=== PATIENT | male | born 1960 | race Caucasian/White ===

== ENCOUNTER 2021-07-26 09:19 | Outpatient (CLI) | payer OTHER, SELFPAY ==
--- NOTE | ~2021-07-26 | CT_ITS ---
EXAMINATION: CT lung screening DATE: 07/26/2021 09:34 INDICATION: Z87.891 - Personal history of nicotine dependence TECHNIQUE: Computed tomography (CT) of the chest was performed without intravenous contrast. Addition al 3D reconstructions utilizing coronal maximum intensity projection (MIP) were performed. Automated exposure control and iterative reconstruction technique were employed. The dose-length product was 12 5.51 mGy-cm. COMPARISON: None FINDINGS: Mild emphysema. 5 mm subpleural nodule at the posterior sulcus of the left lower lobe. Multiple addit ional <4 mm nodules scattered throughout both lungs. Couple smelling small calcified nodules in the r ight upper lobe consistent with old granulomatous disease. No pneumonia, pulmonary edema or pleural e ffusion. Heart size is normal. Atherosclerotic coronary artery calcific location. No pericardial effu kesha. Thoracic aorta is normal in caliber. Mildly prominent likely reactive precarinal lymph nodes me asuring up to 10 mm in maximal short axis diameter. No other pathologically enlarged thoracic lymphad enopathy. Cholecystectomy clips at the gallbladder fossa. 2.2 cm low-attenuation left adrenal adenoma . Mild to moderate thoracic spondylosis. Minimal chronic-appearing anterior wedging of a few mid to l ower thoracic vertebral bodies. There are bridging osteophytes at multiple levels in the spine, consi stent with diffuse idiopathic skeletal hyperostosis (DISH). IMPRESSION: 1. Lung-RADS category 2: Benign appearance or behavior. Continue annual screening with noncontrast lo w-dose chest CT in 12 months. 2. Mild emphysema. Reviewed, dictated and finalized at location A. ON DECORATING MACHINE OPERATOR IMPRESSION: 1. Lung-RADS category 2: Benign appearance or behavior. Continue annual screeni ng with noncontrast low-dose chest CT in 12 months. 2. Mild emphysema.
== END 2021-07-26 09:20 | disposition home or self-care (01) ==
LOC: ANHIMG 09:23
PROVIDERS: PCP Internal Medicine; Visit Provider Internal Medicine
DX: Z87.891 Personal history of nicotine dependence (principal); J43.9 Emphysema, unspecified
CPT/HCPCS: 71271

== ENCOUNTER 2022-05-28 14:25 | Emergency (ER) | payer OTHER, SELFPAY ==
[2022-05-28] VITALS (9 sets, daily range): BP systolic 135–144; BP diastolic 73–88; PULSE 75–79; RESP 13–18; TEMP 36.8–36.9; O2SAT 96–100
--- NOTE | ~2022-05-28 | CT_ITS ---
EXAMINATION: CT abdomen pelvis wo con DATE: 05/28/2022 15:53 INDICATION: R flank pain TECHNIQUE: Computed tomography (CT) of the abdomen and pelvis was performed without intravenous contr ast. Automated exposure control and iterative reconstruction technique were employed. The dose-length product was 697.25 mGy-cm. COMPARISON: 09/29/2016. FINDINGS: Lower thorax: Unremarkable Liver: Normal. Biliary/Gallbladder: Gallbladder is absent. No bile duct dilation. Pancreas: No mass or duct dilation. Spleen: Normal. Adrenals:Bilateral adrenal thickening, likely hyperplasia. Kidneys: No mass, stone, or hydronephrosis. GI tract: Unchanged thickening of the distal esophagus. No small or large bowel dilation. Normal appe ndix. Diverticulosis without diverticulitis. Mesentery/Peritoneum: No ascites, mass, or free air. Retroperitoneum: No mass. Atherosclerotic abdominal aortic and/or arterial calcifications. Pelvis: Pelvic organs are within normal limits. Soft Tissues: Soft tissues and body wall unremarkable. Bones: No acute osseous finding. IMPRESSION: No acute abdominopelvic process detected. Reviewed, dictated and finalized at location K. TING MACHINIST
[2022-05-28 14:47] LABS: Basophils Percent Auto 0.3 % (0.2-1.2); Eosinophils Absolute Auto 0.2 K/mm3 (0-0.3); Eosinophils Percent Auto 1.9 % (0-4.4); Hematocrit 36.6 % (42.0-52.0); Hemoglobin 12.1 g/dL (14.0-18.0); Immature Granulocyte Absolute 0.05 K/mm3 (0.00-0.031); Immature Granulocyte Percent A 0.4 % (0-0.5); Lymphocytes Absolute Auto 2.34 K/mm3 (0.9-3.2); Lymphocytes Percent Auto 18.5 % (18.3-44.2); Mean Corpuscular HGB Conc 33.1 g/dl (32-36); Mean Corpuscular Volume 90.8 fl (80-100); Mean Platelet Volume 9.9 fl (7.4-10.4); Monocytes Absolute Auto 1.1 K/mm3 (0.1-0.6); Monocytes Percent Auto 8.5 % (2.6-8.5); Neutrophils Absolute Auto 8.9 K/mm3 (1.3-6.7); Neutrophils Percent Auto 70.4 % (45.5-73.1); Platelet Count Result 229 k/mm3 (150-375); Red Blood Count 4.03 M/mm3 (4.6-6.20); Red Cell Distribution Width 13.6 % (11.5-14.5); White Blood Count 12.6 K/mm3 (4.5-10.0)
[2022-05-28 14:56] LABS: Alanine Aminotransferase 23 U/L (6-50); Albumin Level 4.5 g/dL (3.5-5.1); Alkaline Phosphatase 90 U/L (38-126); Anion Gap 8 mmol/L (8-16); Aspartate Amino Transferase 24 U/L (17-59); Bilirubin,Total 0.5 mg/dL (0.2-1.3); Blood Urea Nitrogen 13 mg/dL (9-20); Calcium 9.2 mg/dL (8.4-10.2); Carbon Dioxide 26 mmol/L (22-30); Chloride 104 mmol/L (98-107); Estimated CRCL calculation 67 ml/min; Estimated Glomerular Filt Rate > 60; Glucose 196 mg/dL (65-110); Lipase 181 U/L (23-300); Potassium 4.4 mmol/L (3.4-5.0); Sodium 138 mmol/L (137-145)
--- NOTE | 2022-05-28 15:39 | ED.ABDPAIN ---
HPI - Abdominal Pain General Chief Complaint: Abdominal Pain Stated Complaint: abdominal pain radiate to back Diverticulitis Time Seen by Provider: 05/28/22 15:23 History of Present Illness HPI narrative: Patient is a 62-year-old male with a history of diabetes, hypertension, hyperlipidemia presenting with right flank pain. Patient states that for the last 3 days he has had intermittent colicky right flank pain associated with nausea but no vomiting. No diarrhea or constipation. States he has had kidney stones in the past as well as diverticulitis and he is unsure if it feels like either. Denies dysuria or hematuria. No fevers or chills, headache, chest pain, shortness of breath, cough, abdominal pain. Related Data Home Medications Medication Instructions Recorded Confirmed blood sugar diagnostic, drum ##1 10/20/19 01/05/22 Allergies Allergy/AdvReac Type Severity Reaction Status Date / Time codeine Allergy Mild stomach Verified 05/28/22 14:26 pain Penicillins Allergy Mild pt does Verified 05/28/22 14:26 not know Review of Systems Review of Systems: All systems reviewed & are unremarkable except as noted in HPI and below PMFSH Family History Family History Father Family history of diabetes mellitus in first degree relative Mother Family history of lung cancer Family history of gallbladder disease Family history of malignant neoplasm Sibling Family history of gallbladder disease Social History Social History Smoking packs per day: 1 Smoking cigarettes per day: 20.0 Years smoked: 45 Smoking pack-years: 45.00 Smoking status: Current some day smoker Alcohol intake: current Exam Narrative: GENERAL: Well-appearing, well-nourished, and in no acute distress. HEAD: Normocephalic, atraumatic. EYES: PERRLA and EOMI. ENT: Nares clear, no rhinorrhea or epistaxis. Mucous membranes moist. NECK: Supple. BACK: No midline tenderness CHEST: Clear to auscultation. No respiratory distress. HEART: Regular rate and rhythm. No murmur heard. Normal peripheral pulses. ABDOMEN: Soft, nontender, nondistended, normal active bowel sounds. Mild right CVA tenderness EXTREMITIES: Normal range of motion. No edema. SKIN: Warm, dry, no rash. NEURO: No focal deficits. Alert and oriented x3. PSYCH: Normal mood and affect. Course Vital Signs Vital signs: Vital Signs Temperature 98.4 F 05/28/22 14:37 Pulse Rate 78 05/28/22 14:37 Respiratory Rate 18 05/28/22 14:37 Blood Pressure 139/74 05/28/22 14:37 Pulse Oximetry 100 05/28/22 14:37 Oxygen Delivery Room Air 05/28/22 14:37 Temperature 98.3 F 05/28/22 16:55 Pulse Rate 79 05/28/22 16:55 Respiratory Rate 16 05/28/22 16:55 Blood Pressure 135/73 05/28/22 16:55 Pulse Oximetry 97 05/28/22 16:55 Oxygen Delivery Room Air 05/28/22 14:37 MDM - Abdominal Pain MDM Narrative Medical decision making narrative: Patient is a 62-year-old male presenting with right flank pain. Vitals are within normal limits. Patient is nontoxic and in no acute distress. Exam is remarkable for the above. No abdominal tenderness. Work with mild leukocytosis. Renal function is normal. UA with small amount of blood. CT abdomen pelvis shows no acute abnormalities. I suspect the patient likely had a right-sided ureteral stone that he has since passed. Patient continues to rest comfortably on reevaluation. States that his pain has not recurred. He feels comfortable going home. Recommended Tylenol and ibuprofen for additional pain control as needed. Advised PCP follow-up. Appropriate return precautions given. Patient voiced understanding and is agreeable with plan. Discharged in stable condition. Lab Data 05/28/22 14:42 05/28/22 14:42 Labs: Lab Results 05/28/22 05/28/22 05/28/22 Range/Unit
[2022-05-28 15:57] LABS: Appearance Urine Clear (Clear); Bilirubin Urine Negative (Negative); Blood Urine Trace-intact (Negative); Color Urine Yellow (Yellow); Glucose Urine UA 3+ mg/dL (Negative); Ketones Urine Negative (Negative); Leukocyte Esterase Ur Negative LEU/UL (Negative); Nitrate Urine Negative (Negative); Protein Urine Trace mg/dL (Negative); Urobilinogen Urine 0.2 mg/dL (<2.0)
[2022-05-28 16:07] LABS: Mucus Urine Rare /lpf; RBC Urine 0-2 /hpf (0-2); Squamous Epithelial Cell Urine Rare /hpf (Few); WBC Urine 0-3 /hpf
[2022-05-28 16:14] LABS: Add Urine Microscopic? YES
--- NOTE | 2022-05-28 16:17 | PC.NURSE ---
pt refused SLN and IVF
== END 2022-05-28 16:57 | disposition home or self-care (01) ==
PROVIDERS: Preventive Medicine Aerospace Medicine; Emergency Provider Emergency Medicine
DX: R10.9 Unspecified abdominal pain (principal)
CPT/HCPCS: 36415; 74176; 80053; 81001; 83690; 85025; 99284

== ENCOUNTER 2022-06-02 13:53 | Outpatient (CLI) | payer OTHER, SELFPAY ==
--- NOTE | ~2022-06-02 | XR_ITS ---
Supine and upright views of the abdomen Clinical history: Right flank pain Findings: Bowel gas pattern is nonspecific. No evidence for obstruction or free air. No abnormal mass lesion or calcification is seen. Cholecystectomy clips noted. Osseous structures are intact. Impression: No significant abnormality is seen. Reviewed, dictated and finalized at location [] ER TRIPPER Impression: No significant abnormality is seen.
== END 2022-06-02 13:54 | disposition home or self-care (01) ==
LOC: ANHIMG 13:56
PROVIDERS: PCP Internal Medicine; Visit Provider Internal Medicine
DX: R10.9 Unspecified abdominal pain (principal)
CPT/HCPCS: 74018

== ENCOUNTER 2023-03-02 01:13 | Day surgery (SDC) | payer OTHER, SELFPAY ==
[2023-02-26 15:06] VITALS: BMI 31.1
--- NOTE | 2023-03-02 08:04 | WPDANESEPPF ---
Anes - Initial Pre Proc Eval Procedure: Operation Date: 03/02/23 12:00 Proposed Procedures p Esophagogastroduodenoscopy & Colonoscopy - Manuel Mahoney MD Date/Time: 03/02/23 08:04 Surgeon: Manuel Mahoney MD Pre Op Diagnosis: Anemia Patient Data Age: 63 Gender: M Height: 1.73 m Weight: 93 kg Allergies Allergy/AdvReac Type Severity Reaction Status Date / Time Penicillins Allergy Mild pt does Verified 03/02/23 10:40 not know Home Medications Medication Instructions Recorded Confirmed Type blood sugar diagnostic, drum ##1 10/20/19 01/15/23 History blood sugar diagnostic #10 ea 11/06/19 01/15/23 Rx blood sugar diagnostic (Blood #200 ea 11/17/19 01/15/23 Rx Glucose Test strips) blood-glucose meter #1 ea 11/17/19 01/15/23 Rx amlodipine 10 mg tablet 10 mg PO DAILY #90 tabs 09/21/22 02/26/23 Rx atorvastatin 80 mg tablet 80 mg PO DAILY #90 tabs 09/21/22 02/26/23 Rx metformin 1,000 mg tablet 1,000 mg PO BID #180 tabs 09/21/22 02/26/23 Rx pantoprazole 40 mg tablet,delayed 40 mg PO QAM #90 tabs 09/21/22 02/26/23 Rx release (Protonix) losartan 100 mg tablet 100 mg PO DAILY #90 tabs 12/11/22 02/26/23 Rx albuterol sulfate 90 mcg/actuation 1 inh inhalation Q4H PRN shortness 01/16/23 02/26/23 Rx aerosol inhaler of breath or wheezing #8.5 grams sildenafil 100 mg tablet 100 mg PO DAILY PRN sexual 02/07/23 02/26/23 Rx activity #15 tabs ferrous sulfate 325 mg (65 mg 325 mg PO DAILY #90 tabs 02/16/23 02/26/23 Rx iron) tablet,delayed release Vitamin D2 5,000 units PO DAILY 02/26/23 02/26/23 History multivit,Ca,min-iron 8 mg-folic 1 tablet PO DAILY 02/26/23 03/02/23 History acid 200 mcg-lycopene 600 mcg tablet (Centrum Men) Patient hx anesthesia problems: none Family hx anesthesia problems: none Results Review: All pre-operative results and documents have been reviewed as part of the pre-operative evaluation. [facility] Past Medical History Medical History Essential (primary) hypertension Hypovitaminosis D Mixed hyperlipidemia Pulmonary emphysema Pulmonary nodule Tobacco use Type 2 diabetes mellitus without complication Surgical History Surgical History History of cholecystectomy Family History Family History Father Family history of diabetes mellitus in first degree relative Mother Family history of lung cancer Family history of gallbladder disease Family history of malignant neoplasm Sibling Family history of gallbladder disease Social History Social History Smoking packs per day: 1 Smoking cigarettes per day: 20.0 Years smoked: 45 Smoking pack-years: 45.00 Smoking status: Heavy tobacco smoker Tobacco type: cigarettes Alcohol intake: current Drinks per week: 42 Alcohol use details: 5-6 daily Substance use: current Substance use type: marijuana Lack of Transportation: No Lack of Food: Never True Current Housing: I Have Housing Concerned About Future Housing: No Difficulty Paying Gas/Electric Bills: No Difficulty Paying for Meds: No Currently Unemployed: No Education: High School Diploma/GED Difficulty w/ Childcare or Family Care: No Living arrangements: alone Spiritual care concerns: No Anes - Eval Final PreProcedure Day of Procedure 03/02/23 08:04 Patient weight: obese Heart: regular rate and rhythm Lungs: clear to auscultation Airway: Mallampati scale class II Neurological: alert and oriented Last oral intake: >/= 8 hours ASA classification: III Emergent: no Anesthetic plan: proceed Anesthesia type and monitoring: general GIVS and standard monitoring Results Review: All pre-operative results and documents have been reviewed as part of the pre-operative evaluation. Informed Consent: The stephani
[2023-03-02 10:42] VITALS: BP 130/72; PULSE 78; RESP 20; TEMP 36.3; O2SAT 98; BMI 31.7
[2023-03-02] MEDS: LACTATED RINGERS 1,000 ML 150 ML IV CONT (11:00)
[2023-03-02 11:04] LABS: Glucose Point of Care 205 mg/dl (65-105)
--- NOTE | 2023-03-02 11:12 | PM.HPGS ---
History of Present Illness History of Present Illness Consent: Risks, benefits, and alternatives have been discussed and questions answered. Patient agrees to proceed with procedure. Chief complaint: Anemia Narrative: Juan Duran Jr. is a 63 year old male Was referred for investigation of severe anemia. His hemoglobin which was as high as 15 a year ago is down to 7.4. Iron levels are also quite low. He has a history of having esophagitis and esophageal stricture, last dilated about 5 years ago. He had a couple of polyps removed when he had his last colonoscopy about 8 years ago. Review of Systems Review of Systems: All systems reviewed & are unremarkable except as noted in HPI and below PMFSH Past Medical History Medical History Essential (primary) hypertension Hypovitaminosis D Mixed hyperlipidemia Pulmonary emphysema Pulmonary nodule Tobacco use Type 2 diabetes mellitus without complication Surgical History Surgical History History of cholecystectomy Family History Family History Father Family history of diabetes mellitus in first degree relative Mother Family history of lung cancer Family history of gallbladder disease Family history of malignant neoplasm Sibling Family history of gallbladder disease Social History Social History Smoking packs per day: 1 Smoking cigarettes per day: 20.0 Years smoked: 45 Smoking pack-years: 45.00 Smoking status: Heavy tobacco smoker Tobacco type: cigarettes Alcohol intake: current Drinks per week: 42 Alcohol use details: 5-6 daily Substance use: current Substance use type: marijuana Lack of Transportation: No Lack of Food: Never True Current Housing: I Have Housing Concerned About Future Housing: No Difficulty Paying Gas/Electric Bills: No Difficulty Paying for Meds: No Currently Unemployed: No Education: High School Diploma/GED Difficulty w/ Childcare or Family Care: No Living arrangements: alone Spiritual care concerns: No Meds Home Medications and Allergies Home Medications Medication Instructions Recorded Confirmed Type blood sugar diagnostic, um ##1 10/20/19 01/15/23 History blood sugar diagnostic #10 ea 11/06/19 01/15/23 Rx blood sugar diagnostic (Blood #200 ea 11/17/19 01/15/23 Rx Glucose Test strips) blood-glucose meter #1 ea 11/17/19 01/15/23 Rx amlodipine 10 mg tablet 10 mg PO DAILY #90 tabs 09/21/22 02/26/23 Rx atorvastatin 80 mg tablet 80 mg PO DAILY #90 tabs 09/21/22 02/26/23 Rx metformin 1,000 mg tablet 1,000 mg PO BID #180 tabs 09/21/22 02/26/23 Rx pantoprazole 40 mg tablet,delayed 40 mg PO QAM #90 tabs 09/21/22 02/26/23 Rx release (Protonix) losartan 100 mg tablet 100 mg PO DAILY #90 tabs 12/11/22 02/26/23 Rx albuterol sulfate 90 mcg/actuation 1 inh inhalation Q4H PRN shortness 01/16/23 02/26/23 Rx aerosol inhaler of breath or wheezing #8.5 grams sildenafil 100 mg tablet 100 mg PO DAILY PRN sexual 02/07/23 02/26/23 Rx activity #15 tabs ferrous sulfate 325 mg (65 mg 325 mg PO DAILY #90 tabs 02/16/23 02/26/23 Rx iron) tablet,delayed release Vitamin D2 5,000 units PO DAILY 02/26/23 02/26/23 History multivit,Ca,min-iron 8 mg-folic 1 tablet PO DAILY 02/26/23 03/02/23 History acid 200 mcg-lycopene 600 mcg tablet (Centrum Men) Allergies Allergy/AdvReac Type Severity Reaction Status Date / Time Penicillins Allergy Mild pt does Verified 03/02/23 10:40 not know Vital Signs Vital Signs - 24 hr 03/02/23 10:42 Temperature 36.3 C L Pulse Rate 78 Respiratory Rate 20 Blood Pressure 130/72 Pulse Oximetry 98 Oxygen Delivery Room Air Exam Const: General: alert Orientation/consciousness: patient oriented x3 Resp: Auscultation: clear t
--- NOTE | 2023-03-02 12:04 | SUR.OPER ---
EGD END TIME: 1202 COLON START TIME: 1208
[2023-03-02] MEDS: SIMETHICONE ORAL SUSPENSION 20 MG/0.3 ML 30 ML BOTTLE 0.6 ML IRRIGATION (12:23)
[2023-03-02 12:44] VITALS: BP 105/69; PULSE 78; RESP 24; O2SAT 97
[2023-03-02 12:54] VITALS: BP 126/69; PULSE 74; RESP 21; O2SAT 96
[2023-03-02 13:04] VITALS: BP 128/76; PULSE 70; RESP 21; O2SAT 99
== END 2023-03-02 13:14 | disposition home or self-care (01) ==
PROVIDERS: PCP Family Medicine; Visit Provider Internal Medicine Gastroenterology
PROC: 0DJ08ZZ Inspection of Upper Intestinal Tract, Via Natural or Artificial Opening Endoscopic (ICD-10-PCS; CPT 43235; principal; 2023-03-02 12:00)
DX: D50.9 Iron deficiency anemia, unspecified (principal); K57.30 Diverticulosis of large intestine without perforation or abscess without bleeding; D12.3 Benign neoplasm of transverse colon; D12.5 Benign neoplasm of sigmoid colon; K22.2 Esophageal obstruction; E11.9 Type 2 diabetes mellitus without complications; E78.2 Mixed hyperlipidemia; I10 Essential (primary) hypertension; E55.9 Vitamin D deficiency, unspecified; J43.9 Emphysema, unspecified; F17.210 Nicotine dependence, cigarettes, uncomplicated; F12.90 Cannabis use, unspecified, uncomplicated; E66.9 Obesity, unspecified; Z68.31 Body mass index [BMI] 31.0-31.9, adult; Z79.84 Long term (current) use of oral hypoglycemic drugs; Z79.51 Long term (current) use of inhaled steroids
CPT/HCPCS: 45385; 45381; 43239; 43249; 82948; 88305; C1726; J2704; J7120

== ENCOUNTER 2023-03-02 21:43 | Emergency (ER) | payer OTHER, SELFPAY ==
[2023-03-02 21:47] VITALS: BP 144/59; PULSE 98; RESP 17; TEMP 37.3; O2SAT 96
--- NOTE | 2023-03-02 23:46 | PC.NURSE ---
Pt tariq kim tells me that he will call his doctor in the morning. Ambulatory in no acute distress.
== END 2023-03-02 23:58 | disposition left against medical advice (07) ==
LOC: ANHED 23:50
PROVIDERS: PCP Family Medicine
DX: R10.32 Left lower quadrant pain (principal)
CPT/HCPCS: 99199

== ENCOUNTER 2023-03-27 14:26 | Outpatient (CLI) | payer OTHER, SELFPAY ==
[2023-03-27 14:40] LABS: Basophils Absolute Auto 0.1 K/mm3 (0.0-0.1); Basophils Percent Auto 0.6 % (0.2-1.2); Eosinophils Absolute Auto 0.3 K/mm3 (0-0.3); Eosinophils Percent Auto 2.5 % (0-4.4); Hematocrit 37.7 % (42.0-52.0); Hemoglobin 11.2 g/dL (14.0-18.0); Immature Granulocyte Absolute 0.03 K/mm3 (0.00-0.031); Immature Granulocyte Percent A 0.3 % (0-0.5); Lymphocytes Absolute Auto 1.98 K/mm3 (0.9-3.2); Lymphocytes Percent Auto 18.5 % (18.3-44.2); Mean Corpuscular HGB Conc 29.7 g/dl (32-36); Mean Corpuscular Hemoglobin 21.9 pg (26-34); Mean Corpuscular Volume 73.6 fl (80-100); Mean Platelet Volume 8.9 fl (7.4-10.4); Monocytes Absolute Auto 1.1 K/mm3 (0.1-0.6); Monocytes Percent Auto 10.1 % (2.6-8.5); Neutrophils Absolute Auto 7.3 K/mm3 (1.3-6.7); Platelet Count Result 271 k/mm3 (150-375); Red Blood Count 5.12 M/mm3 (4.6-6.20); Red Cell Distribution Width 28.9 % (11.5-14.5); White Blood Count 10.7 K/mm3 (4.5-10.0)
[2023-03-27 14:45] LABS: Anisocytosis 1+ (NORMAL); Hypochromasia 1+ (NORMAL); Platelet Estimate Adequate (Adequate); Schistocytes None Seen (NORMAL)
[2023-03-27 14:46] LABS: Ovalocytes 1+ (NORMAL); Poikilocytosis 1+ (NORMAL)
[2023-03-27 16:43] LABS: Iron 455 ug/dL (49-181)
[2023-03-27 16:45] LABS: Alanine Aminotransferase 22 U/L (6-50); Albumin Level 4.4 g/dL (3.5-5.1); Alkaline Phosphatase 77 U/L (38-126); Anion Gap 9 mmol/L (8-16); Aspartate Amino Transferase 22 U/L (17-59); Bilirubin,Total 0.4 mg/dL (0.2-1.3); Blood Urea Nitrogen 12 mg/dL (9-20); Calcium 9.2 mg/dL (8.4-10.2); Carbon Dioxide 24 mmol/L (22-30); Chloride 103 mmol/L (98-107); Estimated Glomerular Filt Rate > 60; Glucose 262 mg/dL (65-110); Potassium 4.2 mmol/L (3.4-5.0); Sodium 136 mmol/L (137-145)
[2023-03-27 16:52] LABS: Percent Iron Saturation 90 % (20-50)
[2023-03-27 17:53] LABS: Folic Acid 16.9 ng/mL (2.76->20)
== END 2023-03-27 14:27 | disposition home or self-care (01) ==
LOC: ANHLAB 14:28
PROVIDERS: PCP Family Medicine; Visit Provider Internal Medicine Hematology & Oncology
DX: D64.9 Anemia, unspecified (principal)
CPT/HCPCS: 36415; 80053; 82607; 82728; 82746; 83540; 83550; 85025

== ENCOUNTER 2023-05-29 14:44 | Outpatient (CLI) | payer OTHER, SELFPAY ==
--- NOTE | ~2023-05-29 | CT_ITS ---
CT Scan of the Chest without Contrast: Clinical Indication: Lung cancer screening, personal history of nicotine dependence Technique: Contiguous sections were acquired throughout the chest without intravenous contrast. Dose reduction technique was used on this scan by utilizing automated exposure control and iterative recon struction technique. The dose-length product (DLP) was 230.32 mGy-cm. COMPARISON: 07/26/2021 Findings: Stable prominent precarinal lymph node. No other lymphadenopathy seen. There are atherosclerotic calc ifications of the aorta and coronary arteries. There is no evidence of pleural or pericardial effusion. Stable 4 mm noncalcified left basilar pulmonary nodule. There is mild emphysema with several scattere d tiny upper lobe nodules. Images through the upper abdomen reveal stable low-density left adrenal nodules.. Impression: Lung RADS 2: Benign appearance. 12 month follow-up screening CT advised. Reviewed, dictated and finalized at [facility]. OSIVE OPERATOR FUSE Impression: Lung RADS 2: Benign appearance. 12 month follow-up screening CT advised.
== END 2023-05-29 14:45 | disposition home or self-care (01) ==
PROVIDERS: PCP Family Medicine; Visit Provider Family Medicine
DX: Z12.2 Encounter for screening for malignant neoplasm of respiratory organs (principal); Z87.891 Personal history of nicotine dependence
CPT/HCPCS: 71271

== ENCOUNTER 2023-06-29 12:17 | Emergency (ER) | payer OTHER, SELFPAY ==
[2023-06-29] VITALS (17 sets, daily range): BP systolic 124–175; BP diastolic 66–142; PULSE 70–90; RESP 14–23; TEMP 36.2; O2SAT 95–100
--- NOTE | ~2023-06-29 | CT_ITS ---
EXAMINATION: CT abdomen pelvis w con DATE: 06/29/2023 13:23 INDICATION: Left lower quadrant abdominal pain. Nausea, diarrhea. TECHNIQUE: Computed tomography (CT) of the abdomen and pelvis was performed with 100 CC Omnipaque 350 intravenous contrast. Automated exposure control and iterative reconstruction technique were employe d. Exam dose: 1187.66 mGy-cm total exam DLP. COMPARISON: 06/02/2022 KUB 05/28/2022 CT abdomen pelvis FINDINGS: 5 mm posterior basilar left lower lobe pulmonary nodule with attenuation up to 130 Hounsfie ld units, likely a calcified left lower lobe pulmonary granuloma. The lung bases are clear of infiltr ate or consolidation. Heart size is within normal range. No pericardial or pleural effusion. 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 Status post cholecystectomy. No bile duct or pancreatic duct dilatation. Diffuse hepatic steatosis. No hepatic, splenic, pancreatic or renal space-occupying mass lesion is de tected. Bilateral adrenal hypertrophy. No urinary tract calculus or hydroureteronephrosis. There is abdominal aortic and iliac and femoral arterial calcification but no abdominal aortic aneury sm. No intraperitoneal or retroperitoneal or pelvic mass lesion or adenopathy or ascites. Mild prostate enlargement. The urinary bladder is unremarkable. Normal appendix. Diverticulosis of the left colon; no CT evidence of diverticulitis. No bowel obstruction, bowel wall thickening, pneumatosis or intraperitoneal free air. Diffuse idiopathic skeletal hyperostosis of the thoracolumbar spine. No suspicious osteolytic or oste oblastic lesions are noted. IMPRESSION: Status post cholecystectomy Hepatic steatosis Bilateral adrenal hypertrophy Normal appendix Diverticulosis of the colon; no CT evidence of diverticulitis Prostate enlargement Reviewed, dictated and finalized at [facility]. Reviewed, dictated and finalized at location B. L ATTENDANT
[2023-06-29 12:37] LABS: Basophils Percent Auto 0.4 % (0.2-1.2); Eosinophils Absolute Auto 0.2 K/mm3 (0-0.3); Eosinophils Percent Auto 1.7 % (0-4.4); Hematocrit 46.6 % (42.0-52.0); Hemoglobin 15.5 g/dL (14.0-18.0); Immature Granulocyte Absolute 0.06 K/mm3 (0.00-0.031); Immature Granulocyte Percent A 0.6 % (0-0.5); Lymphocytes Percent Auto 20.4 % (18.3-44.2); Mean Corpuscular HGB Conc 33.3 g/dl (32-36); Mean Corpuscular Hemoglobin 28.3 pg (26-34); Mean Platelet Volume 9.4 fl (7.4-10.4); Monocytes Absolute Auto 0.9 K/mm3 (0.1-0.6); Monocytes Percent Auto 8.6 % (2.6-8.5); Neutrophils Absolute Auto 7.4 K/mm3 (1.3-6.7); Neutrophils Percent Auto 68.3 % (45.5-73.1); Platelet Count Result 178 k/mm3 (150-375); Red Blood Count 5.48 M/mm3 (4.6-6.20); Red Cell Distribution Width 19.6 % (11.5-14.5); White Blood Count 10.8 K/mm3 (4.5-10.0)
[2023-06-29 12:49] LABS: Alanine Aminotransferase 29 U/L (6-50); Albumin Level 4.3 g/dL (3.5-5.1); Alkaline Phosphatase 96 U/L (38-126); Anion Gap 11 mmol/L (8-16); Aspartate Amino Transferase 27 U/L (17-59); Bilirubin,Total 0.6 mg/dL (0.2-1.3); Blood Urea Nitrogen 10 mg/dL (9-20); Calcium 9.7 mg/dL (8.4-10.2); Carbon Dioxide 26 mmol/L (22-30); Chloride 100 mmol/L (98-107); Estimated CRCL calculation 85 ml/min; Estimated Glomerular Filt Rate > 60; Glucose 292 mg/dL (65-110); Lipase 166 U/L (23-300); Potassium 4.3 mmol/L (3.4-5.0); Sodium 137 mmol/L (137-145)
--- NOTE | 2023-06-29 12:55 | ED.ABDPAIN ---
HPI - Abdominal Pain General Chief Complaint: Abdominal Pain Stated Complaint: abd pain Time Seen by Provider: 06/29/23 12:25 Source: patient Mode of arrival: ambulatory Limitations: no limitations History of Present Illness HPI narrative: 63-year-old male presenting with left lower quadrant abdominal pain starting a few days ago. Says it is more intermittent and comes and goes. Started after eating at [employer]. He has history of diverticulosis. Had a colonoscopy done about a month ago and they removed 7 polyps. Also has been having about 4 episodes of diarrhea a day and feels occasionally nauseous. Wanted to make sure to have diverticulitis. Related Data Home Medications Medication Instructions Recorded Confirmed blood sugar diagnostic, drum ##1 10/20/19 05/17/23 Vitamin D2 5,000 units PO DAILY 02/26/23 05/17/23 multivit,Ca,min-iron 8 mg-folic 1 tablet PO DAILY 02/26/23 05/17/23 acid 200 mcg-lycopene 600 mcg tablet (Centrum Men) Allergies Allergy/AdvReac Type Severity Reaction Status Date / Time Penicillins Allergy Mild pt does Verified 03/20/23 07:34 not know Review of Systems Review of Systems: All systems reviewed & are unremarkable except as noted in HPI and below (HPI) PMFSH Past Medical History Medical History Essential (primary) hypertension Hypovitaminosis D Mixed hyperlipidemia Pulmonary emphysema Pulmonary nodule Tobacco use Type 2 diabetes mellitus without complication Surgical History Surgical History History of cholecystectomy Family History Family History Father Family history of diabetes mellitus in first degree relative Mother Family history of lung cancer Family history of gallbladder disease Family history of malignant neoplasm Sibling Family history of gallbladder disease Social History Social History Smoking packs per day: 1 Smoking cigarettes per day: 20.0 Years smoked: 45 Smoking pack-years: 45.00 Smoking status: Heavy tobacco smoker Tobacco type: cigarettes Alcohol intake: current Drinks per week: 42 Alcohol use details: 5-6 daily Substance use: current Substance use type: marijuana Lack of Transportation: No Lack of Food: Never True Current Housing: I Have Housing Concerned About Future Housing: No Difficulty Paying Gas/Electric Bills: No Difficulty Paying for Meds: No Currently Unemployed: No Education: High School Diploma/GED Difficulty w/ Childcare or Family Care: No Living arrangements: alone Spiritual care concerns: No Exam Narrative: Constitutional: Generally well appearing, no acute distress Head: Atraumatic, no deformities. Eyes: Pupils equal, round, and reactive to light. Neck: Supple, no tracheal deviation, no JVD. ENMT: Mucous membranes moist Cardiovascular: S1, S2 auscultated. No murmurs, rubs, or gallops. No S3/S4. Normal Distal pulses. No peripheral edema. Respiratory: Lung sounds equal. No wheezes, rales, or rhonchi. Gastrointestinal: Abdomen was soft with mild tenderness in the left lower quadrant. Non-distended. No rebound or guarding. Genitourinary: Deferred Musculoskeletal: Normal muscle tone and bulk. No obvious deformities or tenderness over extremities. Skin: No rashes. Neurological: Strength 5/5 in extremities. Cranial nerves I-XII grossly intact. Distal sensation intact. Mental Status: Awake, alert and oriented x3. Follows commands Course Vital Signs Vital signs: Vital Signs Temperature 36.2 C L 06/29/23 12:18 Pulse Rate 83 06/29/23 12:18 Respiratory Rate 20 06/29/23 12:18 Blood Pressure 171/66 H 06/29/23 12:18 Pulse Oximetry 99 06/29/23 12:18 Oxygen Delivery Room Air 06/29/23 12:18 Temperature 36.2 C L 06/29/23
[2023-06-29 14:58] LABS: Appearance Urine Clear (Clear); Bilirubin Urine Negative (Negative); Blood Urine Negative (Negative); Color Urine Yellow (Yellow); Glucose Urine UA 3+ mg/dL (Negative); Ketones Urine Negative (Negative); Leukocyte Esterase Ur Negative LEU/UL (Negative); Nitrate Urine Negative (Negative); Protein Urine Negative (Negative); Urobilinogen Urine 0.2 mg/dL (<2.0)
[2023-06-29 15:05] LABS: Add Urine Microscopic? NO; Specific Grav Ur 1.044 (1.001-1.035)
== END 2023-06-29 16:11 | disposition home or self-care (01) ==
PROVIDERS: Emergency Provider Emergency Medicine; PCP Family Medicine
DX: K52.9 Noninfective gastroenteritis and colitis, unspecified (principal); I10 Essential (primary) hypertension; J43.9 Emphysema, unspecified; E78.2 Mixed hyperlipidemia; E55.9 Vitamin D deficiency, unspecified; E11.9 Type 2 diabetes mellitus without complications; F17.210 Nicotine dependence, cigarettes, uncomplicated; Z90.49 Acquired absence of other specified parts of digestive tract; Z79.84 Long term (current) use of oral hypoglycemic drugs
CPT/HCPCS: 36415; 74177; 80053; 81003; 83690; 85025; 99284; Q9967

== ENCOUNTER 2023-10-19 15:48 | Outpatient (CLI) | payer OTHER, SELFPAY ==
--- NOTE | ~2023-10-19 | US_ITS ---
EXAMINATION: US soft tissue UE LT DATE: 10/19/2023 16:06 INDICATION: Benign lipomatous neoplasm, unspecified. TECHNIQUE: Multiple grayscale and Doppler ultrasound images of the left upper limb were obtained. COMPARISON: None FINDINGS: In the left upper arm, there is a 5.0 x 1.6 x 4.6 cm subcutaneous mass with echotexture and echogenicity equal to normal subcutaneous fat, consistent with a lipoma. IMPRESSION: 1. 5.0 cm subcutaneous lipoma in left upper arm. Reviewed, dictated and finalized at location E.
== END 2023-10-19 15:49 | disposition home or self-care (01) ==
LOC: ANHIMG 15:49
PROVIDERS: PCP Family Medicine; Visit Provider Family Medicine
DX: D17.9 Benign lipomatous neoplasm, unspecified (principal)
CPT/HCPCS: 76882

== ENCOUNTER 2023-11-29 13:36 | Outpatient (CLI) | payer OTHER, SELFPAY ==
--- NOTE | 2023-11-29 13:57 | ECHO_ITS ---
Patient Info Name: Juan Duran Age: 63 years : 1960 Gender: Male Ht: 68 in Wt: 215 lbs BSA: 2.20 m2 HR: 76 bpm BP: 146 / 85 mmHg Technical Quality: Fair Exam Date: 11/29/2023 2:03 PM Exam Location: Echo Lab Patient Status: Outpatient Admit Date: 11/29/2023 Staff Ordering Physician: Zhang Bowen MD Public Speaking Professor: Stacey Estrella RDCS Attending Provider: Zhang Bowen MD Referring Physician: Andrés SANTILLAN; Exam Type: CA echo doppler color flow Study Info Indications R01.1 - Cardiac murmur, unspecified Complete two-dimensional, color flow and Doppler transthoracic echocardiogram is performed. Summary 1. Complete two-dimensional, color flow and Doppler transthoracic echocardiogram is performed. 2. Left ventricular chamber dimension is normal. 3. Left ventricular systolic function is normal, estimated at 60-65%. 4. The left ventricular diastolic function is grade I diastolic dysfunction. 5. E/e' 13 is mildly elevated. 6. There is trace mitral valve regurgitation. 7. There is trace tricuspid valve regurgitation. 8. No pulmonary hypertension, estimated pulmonary arterial systolic pressure is 36 mmHg. Left Ventricle E/e' 13 is mildly elevated. Left ventricular chamber dimension is normal. Left ventricular systolic function is normal, estimated at 60-65%. The left ventricular diastolic function is grade I diastolic dysfunction. Right Ventricle Right ventricular systolic function is normal and with normal TAPSE 2.1 cm. Right ventricular chamber dimension is normal. Left Atria Left atrial chamber dimension is normal. Right Atria Right atrial chamber dimension is normal. Aortic Valve The aortic valve is trileaflet. There is no aortic valve stenosis. There is no aortic valve regurgitation. Pulmonic Valve There is no pulmonic regurgitation. Mitral Valve There is no mitral valve stenosis. There is trace mitral valve regurgitation. Tricuspid Valve There is trace tricuspid valve regurgitation. No pulmonary hypertension, estimated pulmonary arterial systolic pressure is 36 mmHg. Pericardium/Pleural There is no pericardial effusion. Inferior Vena Cava Normal inferior vena cava with >50% collapse upon inspiration consistent with normal right atrial pressure, 5 mmHg. Aorta The aortic root size at the sinus of Valsalva is normal. Left Ventricular Outflow Tract Name Value Normal LVOT 2D LVOT Diameter 2.1 cm LVOT Doppler LVOT Peak Gradient 8 mmHg LVOT Mean Gradient 4 mmHg LVOT VTI 28 cm LVOT VTI/AV VTI Ratio 0.9 LVOT Stroke Volume 93 ml LVOT CO 6.2 l/min LVOT CI 2.8 l/min/m2 Pulmonic Valve Name Value Normal RVOT Doppler RVOT Peak Gradient 4 mmHg PV Doppler
== END 2023-11-29 13:37 | disposition home or self-care (01) ==
LOC: ANHCARD 13:37
PROVIDERS: PCP Family Medicine; Visit Provider Family Medicine
DX: R01.1 Cardiac murmur, unspecified (principal); I51.89 Other ill-defined heart diseases
CPT/HCPCS: 93306

== ENCOUNTER 2024-05-30 14:02 | Emergency (ER) | payer OTHER, SELFPAY ==
--- NOTE | ~2024-05-30 | CT_ITS ---
EXAMINATION: CT abdomen pelvis w con DATE: 05/30/2024 16:40 INDICATION: Left lower quadrant abdominal pain. TECHNIQUE: Computed tomography (CT) of the abdomen and pelvis was performed with 100 mL Omnipaque 350 intravenous contrast. Automated exposure control and iterative reconstruction technique were employe d. The dose-length product was 1071.79 mGy-cm. COMPARISON: CT abdomen pelvis 06/29/2023, 05/28/2022, chest CT 05/29/2023 FINDINGS: The visualized portions of the lung bases demonstrate mild atelectasis. There is a chronic 6 mm nodule in left lower lobe, likely benign. No pleural effusion. The heart size is normal. There a re coronary artery calcifications. No pericardial effusion. There is diffuse hepatic steatosis. There are changes of cholecystectomy. The spleen and pancreas are normal. There is chronic nodular thicken ing of the adrenal glands, likely adenomas. The kidneys are normal. The pancreas is mildly enlarged. There is diverticulosis of the colon without evidence of diverticulitis. There are no dilated loops o f bowel. The appendix is normal. There is calcified atherosclerosis of the aorta and many of the othe r arteries. There are no pathologically enlarged lymph nodes. There is no free intraperitoneal fluid. There is mild thoracic spondylosis. There are bridging endplate osteophytes at multiple levels in th e spine, consistent with diffuse idiopathic skeletal hyperostosis (DISH). IMPRESSION: 1. Diffuse hepatic steatosis. Reviewed, dictated and finalized at location A. INE DESIGN ENGINEER
[2024-05-30 14:55] VITALS: BP 152/62; PULSE 88; RESP 18; TEMP 37.1; O2SAT 98
[2024-05-30 16:23] LABS: Estimated CRCL calculation 71 ml/min; Estimated Glomerular Filt Rate > 60
[2024-05-30 16:28] VITALS: BP 144/76; PULSE 76; RESP 20; TEMP 36.3; O2SAT 97
[2024-05-30 16:43] LABS: Basophils Absolute Auto 0.1 K/mm3 (0.0-0.1); Basophils Percent Auto 0.4 % (0.2-1.2); Eosinophils Absolute Auto 0.3 K/mm3 (0-0.3); Eosinophils Percent Auto 2.2 % (0-4.4); Hematocrit 46.4 % (42.0-52.0); Hemoglobin 16.4 g/dL (14.0-18.0); Immature Granulocyte Absolute 0.05 K/mm3 (0.00-0.031); Immature Granulocyte Percent A 0.4 % (0-0.5); Lymphocytes Absolute Auto 2.48 K/mm3 (0.9-3.2); Lymphocytes Percent Auto 17.8 % (18.3-44.2); Mean Corpuscular HGB Conc 35.3 g/dl (32-36); Mean Corpuscular Hemoglobin 32.7 pg (26-34); Mean Corpuscular Volume 92.6 fl (80-100); Mean Platelet Volume 11.3 fl (7.4-10.4); Monocytes Absolute Auto 1.1 K/mm3 (0.1-0.6); Monocytes Percent Auto 8.2 % (2.6-8.5); Neutrophils Absolute Auto 9.9 K/mm3 (1.3-6.7); Platelet Count Result 161 k/mm3 (150-375); Red Blood Count 5.01 M/mm3 (4.6-6.20); Red Cell Distribution Width 13.2 % (11.5-14.5); White Blood Count 13.9 K/mm3 (4.5-10.0)
[2024-05-30 16:49] LABS: Alanine Aminotransferase 35 U/L (6-50); Albumin Level 4.5 g/dL (3.5-5.1); Alkaline Phosphatase 92 U/L (38-126); Anion Gap 6 mmol/L (4-12); Aspartate Amino Transferase 34 U/L (17-59); Bilirubin,Total 0.9 mg/dL (0.2-1.3); Blood Urea Nitrogen 15 mg/dL (9-20); Calcium 9.8 mg/dL (8.4-10.2); Carbon Dioxide 26 mmol/L (22-30); Chloride 104 mmol/L (98-107); Estimated CRCL calculation 86 ml/min; Estimated Glomerular Filt Rate > 60; Glucose 309 mg/dL (65-110); Potassium 4.7 mmol/L (3.4-5.0); Sodium 136 mmol/L (137-145)
--- NOTE | 2024-05-30 17:40 | ED.ABDPAIN ---
HPI - Abdominal Pain General Chief Complaint: Abdominal Pain Stated Complaint: LLQ pain Time Seen by Provider: 05/30/24 15:46 History of Present Illness HPI narrative: patient is a 64-year-old male who presents ER with left-sided abdominal pain. History of diverticulitis. Has been cramping over last week. Associated with heartburn or nausea. No fevers or chills or sweats. He is having normal bowel movements. No known sick contacts. No alleviating factors. Related Data Home Medications ?Medication ?Instructions ?Recorded ?Confirmed ?Last Taken ?Type blood sugar diagnostic, drum ##1 10/20/19 02/20/24 03/01/23 History Vitamin D2 5,000 units PO DAILY 02/26/23 02/20/24 03/01/23 History multivit,Ca,min-iron 8 mg-folic 1 tablet PO DAILY 02/26/23 02/20/24 03/01/23 History acid 200 mcg-lycopene 600 mcg tablet (Centrum Men) Allergies Allergy/AdvReac Type Severity Reaction Status Date / Time Penicillins Allergy Mild pt does Verified 04/08/24 14:25 not know Review of Systems Review of Systems: All systems reviewed & are unremarkable except as noted in HPI and below Constitutional: Constitutional: Reports no additional constitutional complaints Cardiovascular: Cardiovascular: Reports no additional cardiovascular complaints Respiratory: Respiratory: Reports no additional respiratory complaints Gastrointestinal: Gastrointestinal: Reports abdominal pain, Reports bloating, Denies diarrhea, Reports nausea and Denies vomiting Genitourinary: Genitourinary: Reports no additional male genitourinary complaints [facility] Past Medical History Medical History Essential (primary) hypertension Hypovitaminosis D Mixed hyperlipidemia Pulmonary emphysema Pulmonary nodule Tobacco use Type 2 diabetes mellitus without complication Surgical History Surgical History History of cholecystectomy Family History Family History Father Family history of diabetes mellitus in first degree relative Mother Family history of lung cancer Family history of gallbladder disease Family history of malignant neoplasm Sibling Family history of gallbladder disease Social History Social History Smoking packs per day: 1 Smoking cigarettes per day: 20.0 Years smoked: 45 Smoking pack-years: 45.00 Smoking status: Heavy tobacco smoker Tobacco type: cigarettes Alcohol intake: current Drinks per week: 42 Alcohol use details: 5-6 daily Substance use: current Substance use type: marijuana Lack of Transportation: No Lack of Food: Never True Current Housing: I Have Housing Concerned About Future Housing: No Difficulty Paying Gas/Electric Bills: No Difficulty Paying for Meds: No Currently Unemployed: No Education: High School Diploma/GED Difficulty w/ Childcare or Family Care: No Living arrangements: alone Spiritual care concerns: No Exam Narrative: GENERAL: Well-appearing, well-nourished, and in no acute distress. HEAD: Normocephalic, atraumatic. ENT: Mucous membranes moist. CHEST: Clear to auscultation. No respiratory distress. HEART: Regular rate and rhythm. Normal peripheral pulses. ABDOMEN: Soft, nontender, nondistended. EXTREMITIES: Normal range of motion. No edema. SKIN: Warm, dry, no rash. NEURO: Alert and oriented x3. PSYCH: Normal mood and affect. Course Course Emergency Course: Educated on lab and imaging results. Discharge. Vital Signs Vital signs: Vital Signs Temperature 98.8 F 05/30/24 14:55 Pulse Rate 88 05/30/24 14:55 Respiratory Rate 18 05/30/24 14:55 Blood Pressure 152/62 H 05/30/24 14:55 Pulse Oximetry 98 05/30/24 14:55 Temperature 97.4 F L 05/30/24 16:28 Pulse Rate 76 05/30/24 16:28 Respiratory Rate 20 05/30/24 16:28 Blood Pressure 144/76 H 05/30/24 16:28 Pulse Oximetry 97 05/30/24 16:28 MDM - Abdominal Pain Lab Data 05/30/24 16:31 05/30/24 16:31 Labs: Lab Results 05/30/24 05/30/24 Range/Units 16:21 16:31 WBC 13.9 H (4.5-10.0) K/mm3 RBC 5.01 (4.6-6.20) M/mm3 Hgb 16.4 (14.0-18.0) g/dL Hct 46.4 (42.0-52.0) % MCV 92.6 (80-100) fl MCH 32.7 (26-34) pg MCHC 35.3 (32-36) g/dl RDW 13.2 (11.5-14.5) % Plt Count 161 (150-375) k/mm3 MPV 11.3 H (7.4-10.4) fl Immature Gran % (Auto) 0.4 (0-0.5) % Neut % (Auto) 71.0 (45.5-73.1) % Lymph % (Auto) 17.8 L (18.3-44.2) % [place] % (Auto) 8.2 (2.6-8.5) % Eos % (Auto) 2.2 (0-4.4) % Baso % (Auto) 0.4 (0.2-1.2) % Lymph # (Auto) 2.48 (0.9-3.2) K/mm3 [place] # (Auto) 1.1 H (0.1-0.6) K/mm3 Eos # (Auto) 0.3 (0-0.3) K/mm3 Baso # (Auto) 0.1 (0.0-0.1) K/mm3 Abs Immat Gran (auto) 0.05 H (0.00-0.031) K/mm3 Absolute Neuts (auto) 9.9 H (1.3-6.7) K/mm3 Absolute Nucleated RBC 0.000 (0.0-0.012) K/mm3 Nucleated RBC % 0.0 (0.0-0.2) % Sodium 136 L (137-145) mmol/L Potassium 4.7 (3.4-5.0) mmol/L Chloride 104 (98-107) mmol/L Carbon Dioxide 26 (22-30) mmol/L Anion Gap 6 (4-12) mmol/L BUN 15 D (9-20) mg/dL Creatinine 1.10 0.90 (0.8-1.5) mg/dL Estim Creat Clear Calc 71 86 ml/min Estimated GFR > 60 > 60 (59 - ) Glucose 309 H (65-110) mg/dL Calcium 9.8 (8.4-10.2) mg/dL Total Bilirubin 0.9 (0.2-1.3) mg/dL AST 34 (17-59) U/L ALT 35 (6-50) U/L Alkaline Phosphatase 92 (38-126) U/L Total Protein 7.0 (6.3-8.2) g/dL Albumin 4.5 (3.5-5.1) g/dL Imaging Data Radiologist's impression: ITS Impressions Abdomen/Pelvis CT 05/30/24 16:42 IMPRESSION: 1. Diffuse hepatic steatosis. Discharge Plan Discharge Clinical Impression: Abdominal cramping in left lower quadrant Patient Disposition: Home, Self-Care Condition: Stable Instructions: Antibiotic Form Additional Instructions: Return to the emergency department if you develop severe abdominal pain, severe nausea and vomiting to the point where you are unable to keep down fluids, if you develop chest pain or difficulty breathing, blood in your stool, dizziness or fainting, or if you develop any other new or concerning symptoms as these could be signs of more serious medical illness. Try to stay well hydrated. Patient Language: Romansh Prescriptions: New simethicone 125 mg capsule 125 mg PO QID Qty: 20 0RF Rx Instructions: administer after meals and at bedtime dicyclomine 20 mg tablet 20 mg PO QID Qty: 20 0RF No Action atorvastatin 80 mg tablet 80 mg PO DAILY Qty: 90 1RF insulin glargine [Lantus Solostar U-100 Insulin] 100 unit/mL (3 mL) insulin pen 20 unit subcut QAM Qty: 15 1RF (DME) FreeStyle Christa 3 Plus Sensor Device See Rx Instructions .Route Qty: 1 0RF Rx Instructions: As directed (DME) FreeStyle Christa 3 Gray Misc See Rx Instructions .Route Qty: 1 0RF Rx Instructions: As directed Januvia 100 mg tablet 100 mg PO DAILY Qty: 90 1RF Centrum Men 8 mg iron- 200 mcg-600 mcg Tablet 1 tablet PO DAILY Vitamin D2 5,000 units PO DAILY (DME) blood sugar diagnostic, drum Strip See Rx Instructions .ROUTE .MEDSUPPLY Qty: 1 Rx Instructions: use to check blood sugar 2 times daily (DME) blood sugar diagnostic Strip See Rx Instructions .ROUTE .MEDSUPPLY Qty: 10 0RF Rx Instructions: As directed (DME) blood sugar diagnostic [Blood Glucose Test] Strip See Rx Instructions .ROUTE .MEDSUPPLY Qty: 200 0RF Rx Instructions: use to check blood sugar bid (DME) blood-glucose meter Kit See Rx Instructions .ROUTE .MEDSUPPLY Qty: 1 0RF Rx Instructions: As directed albuterol sulfate 90 mcg/actuation HFA aerosol inhaler 1 inh inhalation Q4H PRN (Reason: shortness of breath or wheezing) Qty: 8.5 0RF ferrous sulfate 325 mg (65 mg iron) tablet,delayed release (DR/EC) 325 mg PO DAILY Qty: 90 0RF sildenafil 100 mg tablet 100 mg PO DAILY PRN (Reason: sexual activity) Qty: 15 5RF Rx Instructions: administer 30 minutes to 4 hours before activity (DME) pen needle, diabetic [Easy Comfort Pen [place]] 31 gauge x 1/4 needle See Rx Instructions .Route Qty: 100 1RF Rx Instructions: As directed losartan 100 mg tablet 100 mg PO DAILY Qty: 90 1RF metformin 1,000 mg tablet See Rx Instructions .ROUTE .COMPLEX Qty: 180 1RF Dose Instruction: TAKE 1 TABLET BY MOUTH TWICE DAILY Rx Instructions: TAKE 1 TABLET BY MOUTH TWICE DAILY amlodipine 10 mg tablet 10 mg PO DAILY Qty: 90 1RF pantoprazole [Protonix] 40 mg tablet,delayed release (DR/EC) 40 mg PO QAM Qty: 90 1RF Follow-up/Referrals: Zhang Bowen MD [Primary Care Provider] - 1 Week
--- OUTSIDE RECORDS SUMMARY | 2024-06-03 10:59 | XMS_ITS | Encounter Summary ---
Author Organization [facility] Address [facility]. [place], [place] [id number] [place] [id number] Care Team Providers Care Setter Up Name Role Phone Unavailable Primary Care Provider Unavailabl e Encounter Details Date Type Department Care Team (Late st Contact Info) Description 02/01/1996 Abstract [place] [address] , Generic Conversion, Social History Tobacco Use Types Packs/Day Years Used Date Smoking Tobacco: Never Assessed Sex and Gender Information Value Date Recorded Sex Assigned at Not on file Legal Sex Male 7:41 PM CDT Gender Identity Not on file Sexual Orientation Not on file documented as of this encounter Plan of Treatment Not on file documented as of this encounter Visit Diagnoses Not on filedocumented in this encounter
--- OUTSIDE RECORDS SUMMARY | 2024-06-03 10:59 | XMS_ITS | Encounter Summary ---
Author Organization [facility] Address [address] [place] [address]. [place], [place] [id number] [place] [id number] Care Team Providers Care Phthalic Acid Purifier Name Role Phone Ladarius Saini MD Primary Care Provider [phone] Encounter Details Date Type Department Care Team (Late st Contact Info) Description 10/31/2003 Abstract [facility] [address] [place], [place] [id number] Simon Charles MD [address] [place] [id number] Social History Tobacco Use Types Packs/Day Years Used Date Smoking Tobacco: Never Assessed Sex and Gender Information Value Date Recorded Sex Assigned at Not on file Legal Sex Male 7:41 PM CDT Gender Identity Not on file Sexual Orientation Not on file COVID-19 Exposure Response Date Recorded In the last month, have you been in contact with someone who was confirmed or suspected to have Coronavirus / COVID-19? No / Unsure 11/23/2019 6:57 PM CDT documented as of this encounter Plan of Treatment Not on file documented as of this encounter Visit Diagnoses Not on filedocumented in this encounter Care Teams Phthalic Acid Purifier Relationship Specialty Start Date End Date Ladarius Saini MD [address] [place] [address] PCP - General INTERNAL MEDICINE 05/20/19 documented as of this encounter
--- OUTSIDE RECORDS SUMMARY | 2024-06-03 10:59 | XMS_ITS | Encounter Summary ---
Author Organization [facility] Address [facility]. [place] [id number] [place] [address] Care Team Providers Care Broom Man Name Role Phone Unavailable Primary Care Provider Unavailabl e Encounter Details Date Type Department Care Team (Late st Contact Info) Description 10/27/2003 Abstract [facility] [address] [place] [address] , Generic Conversion, Social History Tobacco Use [...]
--- OUTSIDE RECORDS SUMMARY | 2024-06-03 10:59 | XMS_ITS | Encounter Summary ---
Author Organization [facility] Address [address] [place] [address]. [place], [place] [id number] [place] [id number] Care Team Providers Care Cut Plug Packer Name Role Phone Ladarius Saini MD Primary Care Provider [phone] Reason for Referral * Imaging (Emergency) - Closed Specialty Diagnoses / Procedures Referred By Contjustin t Referred To Contact RADIOLOGY Procedures CT ABD+PEL W IV CON ONLY Gianluca Sams MD [address] [place] [address] Phone: tel: fax: Referral ID Status Reason Start Date Expiration Date Visits Re quested Visits Authorized [id number] Closed 11/23/2019 12/22/2020 1 1 Encounter Details Date Type Department Care Team (Late st Contact Info) Description 11/23/2019 7:06 PM CDT - 11/23/2019 9:49 PM CDT Emergency [facility] Emergency Room [address] [place], [place] [id number] Gianluca Sams MD [address] [place] [address] [id number] Discharge Disposition: Home or Self Care (Routine Discharge) Social History Tobacco Use Types Packs/Day Years Used Date Smoking Tobacco: Every Day Smokeless Tobacco: Never Alcohol Use Standard Drinks/Week Comments Yes 0 (1 standard drink = 0.6 oz pur e alcohol) Sex and Gender Information Value Date Recorded [...] PM CDT documented as of this encounter Last Filed Vital Signs Vital Sign Reading Time Taken Comments Blood Pressure 136/77 11/23/2019 9:09 PM CDT Pulse 77 11/23/2019 9:09 PM CDT Temperature 37.5 ??C (99.5 ??F) 11/23/2019 7:00 PM CD T Respiratory Rate 18 11/23/2019 9:09 PM CDT Oxygen Saturation 98% 11/23/2019 9:09 PM CDT Inhaled Oxygen Concentration - - Weight 96.2 kg (212 lb) 11/23/2019 7:00 PM CDT Height 172.7 cm (5' 8 ) 11/23/2019 7:00 PM CDT Body Mass Index 32.23 11/23/2019 7:00 PM CDT documented in this encounter Discharge Instructions * Discharge Instructions* Gianluca Sams MD - 11/23/2019 9:33 PM CDT Continue all present medication as prescribed. Fluids. Advance diet as tolerated. Follow-up with your primary care provider in the next 2 to 3 days. Take and record your blood sugars. Decrease alcohol intake. Return to emergency department for any problems concerns * Attachments The following attachments cannot be sent through Care Everywhere. * Hyperglycemia Discharge Instructions, Adult (Northern Irish) * Blood Glucose Monitoring (Northern Irish) * The ABCs of Diabetes (Northern Irish) * Severe Abdominal Pain Discharge Instructions, Adult (Northern Irish) documented in this encounter Medications at Time of Discharge amLODIPine 10 MG tablet Take 10 mg by mouth daily. 1 03/05/2019 atorvastatin 80 MG tablet Take 80 mg by mouth daily. 0 12/02/2018 losartan 100 MG tablet Take 100 mg by mouth daily. 1 03/18/2019 metFORMIN 1000 MG tablet Take 1,000 mg by mouth 2 (two) times daily with meals. 2 03/05/2019 pantoprazole EC 40 MG tablet Take 40 mg by mouth 2 (two) times daily. 0 12/02/2018 documented as of this encounter ED Notes * Gianluca Sams MD - 11/23/2019 7:19 PM CDTAssociated Order(s): EKG Reading [facility] Emergency Department Note Chief Complaint No chief complaint on file. History of Present Illness 59-year-old white male presents for department complaint of abdominal pain. Patient states she has been having discomfort for approximately 2 weeks. He stopped a new diabetic medication that was started 2 weeks ago. He stopped that 1 week ago. Since then he still has minimally diffuse abdominal pain with bloating. Complains of nausea no vomiting. Normal appetite. Loose stools had 5 stools yesterday. Denies fevers or chills. Has a slight cough no shortness of breath. No chest pain or palpitations. No fevers or chills. Patient primary care provider is Dr. Armenta and his partner. Patient has allergies to penicillin. Medications are filled [facility] in [place]. Include amlodipine, atorvast atin, losartan, metformin, pantoprazole. Previous surge includes cholecystectomy. Patient smokes 1 pack cigarettes a day. Drinks alcohol socially peers not to drugs. Patient is single. Patient lives with a significant other. Family history of diabetes Medical History ALLERGIES: Allergies Allergen Reactions ??? Penicillins Rash MEDICATIONS: Prior to Admission medications Medication Sig Start Date End Date Taking? Authorizing Provider amLODIPine 10 MG tablet Take 10 mg by mouth daily. 03/05/19 Doc Abstract atorvastatin 80 MG tablet Take 80 mg by mouth daily. 12/02/18 Doc Abstract losartan 100 MG tablet Take 100 mg by mouth daily. 03/18/19 Doc Abstract metFORMIN 1000 MG tablet Take 1,000 mg by mouth 2 (two) times daily with meals. 03/05/19 Doc Abstract pantoprazole EC 40 MG tablet Take 40 mg by mouth 2 (two) times daily. 12/02/18 Doc Abstract PAST MEDICAL HISTORY: Past Medical History: Diagnosis Date ??? Diabetes mellitus (CMS/HCC) PAST SURGICAL HISTORY: Past Surgical History: Procedure Laterality Date ??? CHOLECYSTECTOMY FAMILY HISTORY: No family history on file. SOCIAL HISTORY: Social History Tobacco Use ??? Smoking status: Current Every Day Smoker ??? Smokeless tobacco: Never Used Substance Use Topics ??? Alcohol use: Yes ??? Drug use: No Review of Systems Review of Systems Constitutional: Negative for chills and fever. HENT: Negative for congestion, rhinorrhea and sore throat. Eyes: Negative for photophobia. Respiratory: Positive for cough. Negative for shortness of breath and wheezing. Patient states has a smoker's cough Cardiovascular: Negative for chest pain, palpitations and leg swelling. Gastrointestinal: Positive for abdominal distention, abdominal pain, diarrhea and nausea. Negative for constipation and vomiting. Endocrine: Negative for polydipsia and polyuria. Genitourinary: Negative for dysuria and frequency. Musculoskeletal: Negative for back pain, neck pain and neck stiffness. Skin: Negative for pallor and rash. Allergic/Immunologic: Negative for immunocompromised state. Neurological: Negative for syncope, light-headedness, numbness and headaches. Hematological: Does not bruise/bleed easily. Psychiatric/Behavioral: Negative for suicidal ideas. Physical Exam Filed Vitals: 11/23/19 1900 11/23/19 2109 BP: (!) 165/101 136/77 Pulse: 95 77 Resp: 18 18 Temp: 99.5 ??F (37.5 ??C) TempSrc: Temporal SpO2: 97% 98% Weight: 96.2 kg (212 lb) Height: 5' 8 (1.727 m) Physical Exam Constitutional: He is oriented to person, place, and time. He appears well- developed and well-nourished. No distress. HENT: Head: Normocephalic and atraumatic. Right Ear: External ear normal. Left Ear: External ear normal. Eyes: Pupils are equal, round, and reactive to light. Conjunctivae and EOM are normal. No scleral icterus. Neck: Normal range of motion. Neck supple. No JVD present. Cardiovascular: Normal rate, regular rhythm, normal heart sounds and intact distal pulses. Exam reveals no gallop and no friction rub. No murmur heard. Pulmonary/Chest: Effort normal and breath sounds normal. No stridor. No respiratory distress. He has no wheezes. He has no rales. He exhibits no tenderness. Abdominal: Soft. Bowel sounds are normal. He exhibits no distension and no mass. There is tenderness. There is no rebound and no guarding. Mild tenderness to abdomen greatest right upper quadrant and left upper quadrant. No rebound. No guarding. No masses Musculoskeletal: Normal range of motion. He exhibits no edema, tenderness or deformity. Neurological: He is alert and oriented to person, place, and time. Skin: Skin is warm and dry. No rash noted. Psychiatric: He has a normal mood and affect. His behavior is normal. Judgment and thought content normal. Nursing note and vitals reviewed. Diagnostic Studies / Procedures ELECTROCARDIOGRAMS: Results for orders placed or performed during the hospital encounter of 11/23/19 [address] [facility] Test Date: 2019-11-23 Pat Name: EDMOND DURAN Department: Room: [place] [address] Gender: Male Tablet Technician: MARTY : 1960 Requested By: GIANLUCA SAMS Order Number: [id number] Reading MD: Brent English Measurements Intervals Mckinney Rate: 83 P: 56 WA: 147 QRS: 58 QRSD: 95 T: 21 QT: 347 QTc: 410 Interpretive Statements SINUS RHYTHM No previous ECG available for comparison Preliminary EKG interpretation by ED Physician Other ischemic changes, not STEMI Gianluca Sams M.D. CRITICAL ALERT ISSUED ON 11-23-2019 19:36:56 LABORATORY STUDIES: Results for orders placed or performed during the hospital encounter of 11/23/19 CBC W/DIFF AUTOMATED Result Value Ref Range WBC 11.3 (H) 4.5 - 11.0 x10'3/uL RBC 4.69 (L) 4.70 - 6.10 x10'6/uL HGB 14.8 14.0 - 18.0 G/DL HCT 42.3 (L) 43.0 - 54.0 % MCV 90.2 80.0 - 94.0 FL MCH 31.6 (H) 27.0 - 31.0 PG MCHC 35.0 32.0 - 36.0 G/DL RDW 13.3 11.5 - 14.5 % PLT 193 130 - 400 x10'3/uL MPV 10.4 9.3 - 12.2 FL DIFFERENTIAL TYPE AUTOMATED DIFFERENTIAL NEUTROPHILS 70.5 % LYMPHOCYTES 18.9 % MONOCYTES 7.8 % EOSINOPHILS 1.8 % BASOPHILS 0.4 % IMMATURE GRANS 0.6 % ABS. NEUTROPHILS TOTAL 7.98 (H) 1.80 - 7.70 x10'3/uL ABS. LYMPHOCYTES 2.14 1.00 - 4.80 x10'3/uL ABS. MONOCYTES 0.88 (H) 0.30 - 0.82 x10'3/uL ABS. EOSINOPHILS 0.20 0.04 - 0.54 x10'3/uL ABS. BASOPHILS 0.05 0.01 - 0.08 x10'3/uL ABS. IMMATURE GRANULOCYTES 0.07 0.00 - 0.49 x10'3/uL COMPREHENSIVE METABOLIC PANEL Result Value Ref Range GLUCOSE 297 (H) 70 - 99 MG/DL BUN 18 7 - 18 MG/DL CREATININE S/P/B 1.28 0.7 - 1.3 MG/DL SODIUM 135 (L) 136 - 145 MMOL/L POTASSIUM 4.5 3.5 - 5.1 MMOL/L CHLORIDE S/P/B 106 100 - 108 MMOL/L CO2 22.4 21 - 32 MMOL/L CALCIUM 9.0 8.5 - 10.1 MG/DL BILIRUBIN TOTAL S/P/B 0.5 0.2 - 1.2 MG/DL TOTAL PROTEIN S/P/B 7.5 6.4 - 8.2 G/DL ALBUMIN S/P/B 3.7 3.4 - 5.0 G/DL AST 13 (L) 15 - 37 U/L ALT 30 16 - 60 U/L ALKALINE PHOSPHATASE S/P/B 107 50 - 136 U/L ANION GAP 6.6 5 - 15 MMOL/L BUN CREATININE RATIO 14.1 6 - 26 A/G RATIO 1.0 1.0 - 2.0 RATIO eGFR Non-Afr. Amer. 62 (L) >90 ML/MIN/1.73 M2 eGFR Afr. Amer. 72 (L) >90 ML/MIN/1.73 M2 LIPASE Result Value Ref Range LIPASE 210 73 - 393 UNITS/L TROPONIN, QUANT Result Value Ref Range TROPONIN I <0.015 <0.045 ng/mL. IMAGING STUDIES CT ABD+PEL W IV CON ONLY Final Result by User, [id number] (11/22 2114) EXAMINATION: ABDOMEN PELVIS CT WITH CONTRAST CLINICAL INDICATION: 59-year-old in the emergency department with abdominal pain. Patient to the ED via Pov. Patient ABD pain after starting new medication. Patient then had DM changed again and still now having ABD swelling and not sure if he having side effect to DM medication TECHNIQUE: CT of the abdomen and pelvis was acquired after intravenous administration of 100 cc of Isovue-370 into indwelling intravenous access in the right antecubital fossa without adverse contrast reaction reported. Images acquired from the lung bases to the femoral heads then reconstructed in sagittal and coronal projections. Dose lowering technique was used for this study which may include, but is not limited to, dose reduction techniques, automated exposure control, use of iterative reconstruction and ALARA (As low As Reasonably Achievable)/Image Gently techniques. COMPARISON: Abdomen pelvis CT without contrast 05/20/2019 FINDINGS: 5 mm nodule in the right lung and 3 mm nodule in the left base unchanged. No new pulmonary nodules. This can serve as 6 month interval stability of the lung bases. No infiltrate or effusion. ABDOMEN: Liver: Borderline hepatomegaly with liver measuring 25 cm transverse diameter. Diffuse hepatic steatosis. No enhancing hepatic lesion. Spleen: Borderline enlargement at 13 cm, otherwise unremarkable. Adrenal glands: Unremarkable Pancreas: Unremarkable Gallbladder: Surgically absent Kidneys: Unremarkable; symmetric nephrograms. No renal lithiasis or hydronephrosis or ureteric calculi. No retroperitoneal lymphadenopathy. Small bowel: Unremarkable. Normal air-filled appendix. Large bowel: Normal in caliber and position. No bowel obstruction. There is left colon diverticulosis without CT findings of diverticulitis.. No free air or free fluid in the abdomen or pelvis. PELVIS: Urinary bladder: Unremarkable. The prostate measures 4 cm in diameter. Vascular imaging: Extensive calcific atherosclerosis infrarenal aorta surrounds the bifurcation and extends into each common iliac artery and there is scattered calcific atherosclerosis of the common femoral arteries. No atherosclerotic calcific disease or atheromatous plaque at the origin of the mesenteric arteries or either renal artery. Bone window imaging: Degenerative change in the lower thoracic spine and upper lumbar spine; Large bridging osteophytosis intervertebral disc space narrowing lower thoracic spine and upper lumbar spine also seen L3-4. No pathologic bony abnormality. IMPRESSION: 1. Hepatosplenomegaly and diffuse hepatic steatosis. 2. Sigmoid diverticulosis. No CT findings of diverticulitis 3. No acute findings in the abdomen or pelvis to explain the presenting complaints. 4. No bowel obstruction or appendicitis or acute inflammatory change in the large or small bowel Interpreted By: Kailee Howard DO, 11/23/2019 9:03 PM XR CHEST PORTABLE Final Result by User, [id number] (11/23 1947) 11/23/2019, 1924 hours. HISTORY: Abdominal pain. Abdominal swelling. History of diabetes. EXAM: Erect portable AP chest. No comparison. FINDINGS: The lungs are clear of active infiltrates. The heart size and pulmonary vascularity are within normal limits. No pleural effusion. No pneumothorax. IMPRESSION: No active cardiopulmonary disease. Reading Date/Time: 11/23/2019 7:34 PM Performed by: Gianluca Sams MD Authorized by: Gianluca Sams MD Interpreted by ED physician Previous ECG: no previous ECG available Rhythm: sinus rhythm Rate: normal BPM: 83 Comments: Normal sinus rhythm heart rate 83. Normal axis normal normal QRS nonspecific ST-T wave changes. cardiac monitor. 1930 p.m. Normal sinus rhythm. Heart rate 83. No ectopy. ED Course / Medical Decision Making MDM Number of Diagnoses or Management Options Diagnosis management comments: Differential diagnosis: Viral gastroenteritis. Diverticulitis Constipation Amount and/or Complexity of Data Reviewed Clinical lab tests: ordered and reviewed Tests in the radiology section of CPT??: ordered and reviewed Risk of Complications, Morbidity, and/or Mortality Presenting problems: moderate Diagnostic procedures: moderate Management options: moderate ED Course as of Nov 22 2144 Sun Nov 23, [id number] Results with patient. Discussed importance of decreasing alcohol intake and following up with his primary care provider. Patient understands agrees with treatment plan. Patient made aware that lung nodules are stable at 5 mm and 3 mm [CA] ED Course User Index [CA] Gianluca Sams MD Medications sodium chloride 0.9% bolus infusion SOLN 1,000 mL (0 mLs Intravenous Infusion Stop Time 11/23/192142) ondansetron (ZOFRAN) injection 4 mg (4 mg Intravenous Given 11/23/191942) iopamidol (ISOVUE-370) 76 % injection 100 mL (100 mLs Intravenous Given 11/23/192038) Clinical Impression Hyperglycemia (Primary) Abdominal pain Current Discharge Medication List Disposition: Discharge Follow-Up: Ladarius Saini MD [address] [facility] [address] In 3 days Gianluca Sams MD 11/23/2019 Gianluca Sams MD 11/23/192144 * Binta Hansen RN - 11/23/2019 6:58 PM CDT Patient to the ED via Pov. Patient ABD pain after starting new medication. Patient then had DM changed again and still now having ABD swelling and not sure if he having side effect to DM medication documented in this encounter Plan of Treatment Not on file documented as of this encounter Procedures Procedure Name Priority Date/Time Associated Diagnosis Comments CT ABD+PEL W CON STAT 11/23/2019 8:39 PM CDT XR CHEST PORTABLE STAT 11/23/2019 7:3 7 PM CDT ECG 12-LEAD Routine 11/23/2019 7:30 PM CDT COMPREHENSIVE METABOLIC PANEL STAT 11/23/2019 7:22 PM CDT CBC W/DIFF AUTOMATED STAT 11/23/2019 7:22 PM CDT TROPONIN, QUANT STAT 11/23/2019 7:22 PM CDT LIPASE STAT 11/23/2019 7:22 PM CDT ELECTROCARDIOGRAM REPORT Routine 020 7:19 PM CDT documented in this encounter Results * CT ABD+PEL W IV CON ONLY (11/23/2019 8:39 PM CDT) Anatomical Region Laterality Modality Abdomen Computed Tomogra phy 11/23/2019 9:03 PM CDT Impressions 11/23/2019 9:14 PM CDT IMPRESSION: 1. ??Hepatosplenomegaly and diffuse hepatic steatosis. 2. ??Sigmoid diverticulosis. ??No CT findings of diverticulitis 3. ??No acute findings in the abdomen or pelvis to explain the presenting complaints. 4. ??No bowel obstruction or appendicitis or acute inflammatory change in the large or small bowel Interpreted By: Kailee Howard DO, 11/23/2019 9:03 PM Narrative 11/23/2019 9:14 PM CDT EXAMINATION: ABDOMEN PELVIS CT WITH CONTRAST CLINICAL INDICATION: 59-year-old in the emergency department with abdominal pain. Patient to the ED via Pov. Patient ABD pain after starting new medication. Patient then had DM changed again and still now having ABD swelling and not sure if he having side ??effect to DM medication TECHNIQUE: CT of the abdomen and pelvis was acquired after intravenous administration of 100 cc of Isovue-370 into indwelling intravenous access in the right antecubital fossa without adverse contrast reaction reported. Images acquired from the lung bases to the femoral heads then reconstructed in sagittal and coronal projections. Dose lowering technique was used for this study which may include, but is not limited to, dose reduction techniques, automated exposure control, use of iterative ??reconstruction and ALARA (As low As Reasonably Achievable)/Image Gently techniques. COMPARISON: Abdomen pelvis CT without contrast 05/20/2019 FINDINGS: 5 mm nodule in the right lung and 3 mm nodule in the left base unchanged. ??No new pulmonary nodules. ??This can serve as 6 month interval stability of the lung bases. ??No infiltrate or effusion. ABDOMEN: Liver: Borderline hepatomegaly with liver measuring 25 cm transverse diameter. ??Diffuse hepatic steatosis. ??No enhancing hepatic lesion. Spleen: Borderline enlargement at 13 cm, otherwise unremarkable. Adrenal glands: Unremarkable Pancreas: Unremarkable Gallbladder: Surgically absent Kidneys: Unremarkable; symmetric nephrograms. ??No renal lithiasis or hydronephrosis or ureteric calculi. No retroperitoneal lymphadenopathy. Small bowel: Unremarkable. ??Normal air-filled appendix. Large bowel: Normal in caliber and position. ??No bowel obstruction. ??There is left colon diverticulosis without CT findings of diverticulitis.. ??No free air or free fluid in the abdomen or pelvis. PELVIS: Urinary bladder: Unremarkable. ??The prostate measures 4 cm in diameter. Vascular imaging: Extensive calcific atherosclerosis infrarenal aorta surrounds the bifurcation and extends into each common iliac artery and there is scattered calcific atherosclerosis of the common femoral arteries. ??No atherosclerotic calcific disease or atheromatous plaque at the origin of the mesenteric arteries or either renal artery. Bone window imaging: Degenerative change in the lower thoracic spine and upper lumbar spine; Large bridging osteophytosis intervertebral disc space narrowing lower thoracic spine and upper lumbar spine also seen L3-4. ??No pathologic bony abnormality. Procedure Note Kailee Howard MD - 11/23/2019 EXAMINATION: ABDOMEN PELVIS CT WITH CONTRAST CLINICAL INDICATION: 59-year-old in the emergency department with abdominal pain. Patient tothe ED via Pov. Patient ABD pain after starting new medication. Patientthen had DM changed again and still now having ABD swelling and not sureif he having side effect to DM medication TECHNIQUE: CT of the abdomen and pelvis was acquired after intravenous administrationof 100 cc of Isovue-370 into indwelling intravenous access in the rightantecubital fossa without adverse contrast reaction reported. Imagesacquired from the lung bases to the femoral heads then reconstructed insagittal and coronal projections. Dose lowering technique was used for this study which may include, but isnot limited to, dose reduction techniques, automated exposure control, useof iterative reconstruction and ALARA (As low As ReasonablyAchievable)/Image Gently techniques. COMPARISON: Abdomen pelvis CT without contrast 05/20/2019 FINDINGS: 5 mm nodule in the right lung and 3 mm nodule in the left base unchanged.No new pulmonary nodules. This can serve as 6 month interval stability ofthe lung bases. No infiltrate or effusion. ABDOMEN: Liver: Borderline hepatomegaly with liver measuring 25 cm transversediameter. Diffuse hepatic steatosis. No enhancing hepatic lesion. Spleen: Borderline enlargement at 13 cm, otherwise unremarkable. Adrenal glands: Unremarkable Pancreas: Unremarkable Gallbladder: Surgically absent Kidneys: Unremarkable; symmetric nephrograms. No renal lithiasis orhydronephrosis or ureteric calculi. No retroperitoneal lymphadenopathy. Small bowel: Unremarkable. Normal air-filled appendix. Large bowel: Normal in caliber and position. No bowel obstruction. Thereis left colon diverticulosis without CT findings of diverticulitis.. Nofree air or free fluid in the abdomen or pelvis. PELVIS: Urinary bladder: Unremarkable. The prostate measures 4 cm in diameter. Vascular imaging: Extensive calcific atherosclerosis infrarenal aortasurrounds the bifurcation and extends into each common iliac artery andthere is scattered calcific atherosclerosis of the common femoralarteries. No atherosclerotic calcific disease or atheromatous plaque atthe origin of the mesenteric arteries or either renal artery. Bone window imaging: Degenerative change in the lower thoracic spine andupper lumbar spine; Large bridging osteophytosis intervertebral disc spacenarrowing lower thoracic spine and upper lumbar spine also seen L3-4. Nopathologic bony abnormality. IMPRESSION: 1. Hepatosplenomegaly and diffuse hepatic steatosis. 2. Sigmoid diverticulosis. No CT findings of diverticulitis 3. No acute findings in the abdomen or pelvis to explain the presentingcomplaints. 4. No bowel obstruction or appendicitis or acute inflammatory change inthe large or small bowel Interpreted By: Kailee Howard DO, 11/23/2019 9:03 PM Gianluca Sams MD CT Final Result * XR CHEST PORTABLE (11/23/2019 7:37 PM CDT) Anatomical Region Laterality Modality Chest Radiographic Lena ging 11/23/2019 7:44 PM CDT Impressions 11/23/2019 7:47 PM CDT IMPRESSION: No active cardiopulmonary disease. Narrative 11/23/2019 7:47 PM CDT 11/23/2019, 1924 hours. HISTORY: Abdominal pain. Abdominal swelling. History of diabetes. EXAM: Erect portable AP chest. No comparison. FINDINGS: The lungs are clear of active infiltrates. The heart size and pulmonary vascularity are within normal limits. No pleural effusion. No pneumothorax. Procedure Note Raul Buchanan MD - 11/23/2019 11/23/2019, 1924 hours. HISTORY: Abdominal pain. Abdominal swelling. History of diabetes. EXAM: Erect portable AP chest. No comparison. FINDINGS: The lungs are clear of active infiltrates. The heart size and pulmonary vascularity are within normal limits. No pleural effusion. No pneumothorax. IMPRESSION: No active cardiopulmonary disease. us Gianluca Sams MD GENERAL IMAGING Final Result * ECG 12 lead (11/23/2019 7:30 PM CDT) 11/23/2019 7:30 PM CDT Narrative [facility] - 11/23/2019 8:56 PM CDT ?[place] [place] ? [address] [place] ? Test Date: ?2019-11-23 Pat Name: ? EDMOND DURAN ?Department: ? Room: ? [id number] Gender: ? Male ? Tablet Technician: ?? MJ : ?1960 ? Requested By: GIANLUCA SAMS Order Number: [id number] ? Reading MD: ?? Brent English ? Measurements Intervals ?Mckin[place] ? Rate: ? 83 ? P: ?56 WA: ? 147 ?QRS: ?58 QRSD: ? 95 ? T: ?21 QT: ? 347 ? QTc: ?410 ? Interpretive Statements SINUS RHYTHM No previous ECG available for comparison Preliminary EKG interpretation by ED Physician Other ischemic changes, not STEMI Gianluca Sams M.D. CRITICAL ALERT ISSUED ON 11-23-2019 19:36:56 Procedure Note Brent English MD - 11/23/[address] Test Date: 2019-11-23 Pat Name: EDMOND DURAN Department: Room: [place] [address] Gender: Male Tablet Technician: MJ : 1960 Requested By: GIANLUCA SAMS Order Number: [id number] Reading MD: Brent English Measurements Intervals [place] Rate: 83 P: 56 WA: 147 QRS: 58 QRSD: 95 T: 21 QT: 347 QTc: 410 Interpretive Statements SINUS RHYTHM No previous ECG available for comparison Preliminary EKG interpretation by ED Physician Other ischemic changes, not STEMI Gianluca Sams M.D. CRITICAL ALERT ISSUED ON 11-23-2019 19:36:56 Gianluca Sams MD ECG ORDERABLES Final Result Performing Organization Address [facility]/ZIP Co de Phone Number [facility] ([place]) RAD * TROPONIN, QUANT (11/23/2019 7:22 PM CDT) TROPONIN I <0.015 <0.045 ng/mL. 11/23/2019 8:05 PM CDT [facility] Comment: HIGH DOSES OF BIOTIN MAY INTERFERE WITH THIS TEST RESULT. CORRELATION TO CLINICAL HISTORY AND PRESENTATION RECOMMENDED. 11/23/2019 7:22 PM CDT Gianluca Sams MD LABORATORY Final Result Performing Organization Address [facility] Co de Phone Number [facility] [address] [place] [id number], [place] [phone] * LIPASE (11/23/2019 7:22 PM CDT) LIPASE 210 73 - 393 UNITS/L 11/23/2019 8:05 PM CDT [facility] 11/23/2019 7:22 PM CDT Gianluca Sams MD LABORATORY Final Result Performing Organization Address [facility] Co de Phone Number [facility] [address] [place] [address], [place] [phone] * (ABNORMAL) COMPREHENSIVE METABOLIC PANEL (11/23/2019 7:22 PM CDT) GLUCOSE 297(H) 70 - 99 MG/DL 11/23/2019 8:05 PM CDT [facility] BUN 18 7 - 18 MG/DL 11/23/2019 8:05 PM CDT [facility] CREATININE S/P/B 1.28 0.7 - 1.3 MG/DL 11/23/2019 8:05 PM CDT [facility] SODIUM S/P/B 135(L) 136 - 145 MMOL/L 11/23/2019 8:05 PM T [facility] POTASSIUM S/P/B 4.5 3.5 - 5.1 MMOL/L 11/23/2019 8:05 PM CDT [facility] CHLORIDE S/P/B 106 100 - 108 MMOL/L 11/23/2019 8:05 PM T [facility] CO2 22.4 21 - 32 MMOL/L 11/23/2019 8:05 PM T [facility] CALCIUM S/P/B 9.0 8.5 - 10.1 MG/DL 11/23/2019 8:05 PM T [facility] BILIRUBIN TOTAL S/P/B 0.5 0.2 - 1.2 MG/DL 11/23/2019 8:05 PM T [facility] Comment: THIS ASSAY IS NOT RECOMMENDED FOR PATIENTS UNDERGOING TREATMENT WITH ELTROMBOPAG DUE TO THE POTENTIAL FOR FALSELY ELEVATED RESULTS. TOTAL PROTEIN S/P/B 7.5 6.4 - 8.2 G/DL 11/23/2019 8:05 PM T [facility] ALBUMIN S/P/B 3.7 3.4 - 5.0 G/DL 11/23/2019 8:05 PM T [facility] AST 13(L) 15 - 37 U/L 11/23/2019 8:05 PM T [facility] ALT 30 16 - 60 U/L 11/23/2019 8:05 PM T [facility] ALKALINE PHOSPHATASE S/P/B 107 50 - 136 U/L 11/23/2019 8:05 PM CDT [facility] ANION GAP 6.6 5 - 15 MMOL/L 11/23/2019 8:05 PM CDT [facility] BUN CREATININE RATIO 14.1 6 - 26 11/23/2019 8:05 PM CDT [facility] A/G RATIO 1.0 1.0 - 2.0 RATIO 11/23/2019 8:05 PM CDT [facility] EGFR NON-AFR. AMER. 62(L) >90 ML/MIN/1.7 3 M2 11/23/2019 8:05 PM CDT [facility] EGFR AFR. AMER. 72(L) >90 ML/MIN/1.7 3 M2 11/23/2019 8:05 PM CDT [facility] Comment: NOTE: eGFR is not calculated for patients <18 years of age. This is an estimated GFR (CKD EPI) and should not be used for calculating drug doses. 11/23/2019 7:22 PM CDT Gianluca Sams MD LABORATORY Final Result [facility] [address] [place] [address], [place] [phone] * (ABNORMAL) CBC W/DIFF AUTOMATED (11/23/2019 7:22 PM CDT) WBC 11.3(H) 4.5 - 11.0 x10'3/uL 11/23/2019 7:47 PM CDT [facility] RBC 4.69(L) 4.70 - 6.10 x10'6/uL 11/23/2019 7:47 PM CDT [facility] HGB 14.8 14.0 - 18.0 G/DL 11/23/2019 7:47 PM CDT [facility] HCT 42.3(L) 43.0 - 54.0 % 11/23/2019 7:47 PM CDT [facility] MCV 90.2 80.0 - 94.0 FL 11/23/2019 7:47 PM CDT [facility] MCH 31.6(H) 27.0 - 31.0 PG 11/23/2019 7:47 PM CDT [facility] MCHC 35.0 32.0 - 36.0 G/DL 11/23/2019 7:47 PM CDT [facility] RDW 13.3 11.5 - 14.5 % 11/23/2019 7:47 PM CDT [facility] PLT 193 130 - 400 x10'3/uL 11/23/2019 7:47 PM CDT [facility] MPV 10.4 9.3 - 12.2 FL 11/23/2019 7:47 PM CDT [facility] DIFFERENTIAL TYPE AUTOMATED DIFFERENTIAL 11/23/2019 7:47 PM CDT [facility] NEUTROPHILS % 70.5 % 11/23/2019 7:47 PM CDT [facility] LYMPHOCYTES % 18.9 % 11/23/2019 7:47 PM CDT [facility] MONOCYTES % 7.8 % 11/23/2019 7:47 PM CDT [facility] EOSINOPHILS 1.8 % 11/23/2019 7:47 PM CDT [facility] BASOPHILS 0.4 % 11/23/2019 7:47 PM CDT [facility] IMMATURE GRANS % 0.6 % 11/23/19 20 7:47 PM CDT [facility] ABS. NEUTROPHILS TOTAL 7.98(H) 1.80 - 7.70 x10'3/uL 11/23/2019 7:47 PM CDT [facility] ABS. LYMPHOCYTES 2.14 1.00 - 4.80 x10'3/uL 11/23/2019 7:47 PM CDT [facility] ABS. MONOCYTES 0.88(H) 0.30 - 0.82 x10'3/uL 11/23/2019 7:47 PM CDT [facility] ABS. EOSINOPHILS 0.20 0.04 - 0.54 x10'3/uL 11/23/2019 7:47 PM CDT [facility] ABS. BASOPHILS 0.05 0.01 - 0.08 x10'3/uL 11/23/2019 7:47 PM CDT [facility] ABS. IMMATURE GRANULOCYTES 0.07 0.00 - 0.49 x10'3/uL 11/23/2019 7:47 PM CDT [facility] 11/23/2019 7:22 PM CDT us Gianluca Sams MD LABORATORY Final Result [facility] [address] [place] [address], * EKG Reading (11/23/2019 7:19 PM CDT) Narrative Gianluca Sams MD - 11/23/2019 7:19 PM CDT Gianluca Sams MD ? 11/23/2019 ??9:45 PM EKG Reading Date/Time: 11/23/2019 7:34 PM Performed by: Gianluca Sams MD Authorized by: Gianluca Sams MD Interpreted by ED physician Previous ECG: no previous ECG available Rhythm: sinus rhythm Rate: normal BPM: 83 Comments: Normal sinus rhythm heart rate 83. ??Normal axis normal normal QRS nonspecific ST-T wave changes. cardiac monitor. ??1930 p.m. Normal sinus rhythm. ??Heart rate 83. ??No ectopy. us Gianluca Sams MD [facility] Final Result documented in this encounter Visit Diagnoses Diagnosis Hyperglycemia- Primary Other abnormal glucose Abdominal pain Abdominal pain, unspecified site documented in this encounter Administered Medications Inactive Administered Medications - up to 3 most recent administrations Medication Order MAR Action Action Date Dose Rate Site iopamidol (ISOVUE-370) 76 % injection 100 mL 100 mL, Intravenous, IMG once as needed, Contrast, 1 dose, Starting on 11/23/19 at 2038, Until 11/23/19 at 2038 Given 11/23/2019 8:39 PM CDT 100 mLs ondansetron (ZOFRAN) injection 4 mg 4 mg, Intravenous, Once, 1 dose, On 11/23/19 at 1930, IV push over 2-5 minutes. Given 11/23/2019 7:43 PM CDT 4 mg sodium chloride 0.9% bolus infusion SOLN 1,000 mL 1,000 mL, Intravenous, Administer over 15 Minutes, Once, 1 dose, On 11/23/19 at 1930 New Bag 11/23/2019 7:44 PM CDT 1,000 mLs documented in this encounter Active and Recently Administered Medications Times are shown in CDT. Scheduled Medication Order 11/21/2019 11/22/2019 11/23/2019 ondansetron (ZOFRAN) injection 4 mg (COMPLETED) 4 mg, Intravenous, Once, 1 dose, On 11/23/19 at 1930, IV push over 2-5 minutes. 1942 (Given - Provid er: Niels Bailey RN) sodium chloride 0.9% bolus infusion SOLN 1,000 mL (COMPLETED) 1,000 mL, Intravenous, Administer over 15 Minutes, Once, 1 dose, On 11/23/19 at 1930 1943 (New Bag - Prov ider: Niels Bailey, RN)2142 (Infusion Stop Time - Provider: Niels Bailey, RN) PRN Medication Order 11/21/2019 11/22/2019 11/23/2019 iopamidol (ISOVUE-370) 76 % injection 100 mL (COMPLETED) 100 mL, Intravenous, IMG once as needed, Contrast, 1 dose, Starting on 11/23/19 at 2038, Until 11/23/19 at 2038 2038 (Given - Provid er: Qiana Adan RTR) documented in this encounter Care Teams Cut Plug Packer Relationship Specialty Start Date End Date Ladarius Saini MD [address] [place] [address] PCP - General INTERNAL MEDICINE 05/20/19 documented as of this encounter
--- OUTSIDE RECORDS SUMMARY | 2024-06-03 10:59 | XMS_ITS | Encounter Summary ---
Author Organization [facility] Address [address] [place] [address]. [place], [place] [id number] [place] [id number] Care Team Providers Care Trenching Machine Operator Name Role Phone Ladarius Saini MD Primary Care Provider [phone] Encounter Details Date Type Department Care Team (Latest Contact Info) Description 11/23/2019 Travel Social History Tobacco Use Types Packs/Day Years [...] on filedocumented in this encounter Care Teams Trenching Machine Operator Relationship Specialty Start Date End Date Ladarius Saini MD [address] [place] [address] PCP - General INTERNAL MEDICINE 05/20/19 documented as of this encounter
--- OUTSIDE RECORDS SUMMARY | 2024-06-03 10:59 | XMS_ITS | Encounter Summary ---
Author Organization [facility] Address [facility]. [place], [place] [address] [place] [id number] Care Team Providers Care Funeral Director Name Role Phone Ladarius Saini MD Primary Care Provider [phone] Reason for Referral * Imaging (Emergency) - Closed Specialty Diagnoses / Procedures Referred By Jef t Referred To Contact RADIOLOGY Procedures CT ABD+PEL WO CON Pallavi Del Rio PA-C [address] [address] Phone: tel: fax: Referral ID Status Reason Start Date Expiration Date Visits Re quested Visits Authorized [id number] Closed 05/20/2019 06/20/2020 1 1 [employer] Reason for Visit * Reason Comments Groin Pain Encounter Details Date Type Department Care Team (Late st Contact Info) Description 05/20/2019 2:22 PM [employer] - 05/20/2019 5:03 PM [employer] Emergency [facility] [place] [address] Pallavi Del Rio PA-C [address] [address] Groin Pain Discharge Disposition: Home or Self Care (Routine [...] on file documented as of this encounter Last Filed Vital Signs Vital Sign Reading Time Taken Comments Blood Pressure 118/81 05/20/2019 3:41 PM [employer] Pulse 84 05/20/2019 3:41 PM [employer] Temperature 36.7 ??C (98 ??F) 05/20/2019 2:12 PM [employer] Respiratory Rate 18 05/20/2019 3:41 PM [employer] Oxygen Saturation 97% 05/20/2019 3:41 PM [employer] Inhaled Oxygen Concentration - - Weight 92.1 kg (203 lb) 05/20/2019 2:12 PM [employer] Height 172.7 cm (5' 8 ) 05/20/2019 2:12 PM [employer] Body Mass Index 30.87 05/20/2019 2:12 PM [employer] documented in this encounter Discharge Instructions * Discharge Instructions* Pallavi Del Rio PA-C - 05/20/2019 4:57 PM [employer] Continue any chronic home medications. [id number] pain reliever may be used per label. You may also take the prescribed Premont as needed for breakthrough pain. Please follow-up with your primary doctor regarding diverticulosis, abdominal pain, lung nodules noted on your CT scan. Return to the emergency room if worsening uncontrolled pain, fever of 100.4 Fahrenheit or greater, significant appreciated testicular pain, or further concern. [employer] * Attachments The following attachments cannot be sent through Care Everywhere. * Pulmonary Nodule (Nicaraguan) * Diverticulosis Discharge Instructions (Nicaraguan) documented in this encounter Medications at Time [...] mouth 2 (two) times daily. 0 12/02/2018 hydrocodone-aceta minophen (NORCO) 5-325 MG tabletIndications :Acute Pain < 3 Day Supply Take 1 tablet by mouth every 6 (six) hours as needed for Pain. Indications: Acute Pain < 3 Day Supply 8 tablet 05/20/2019 11/23/2019 documented as of this encounter ED Notes * Cristina Makc RN - 05/20/2019 4:[address] [employer] * Pallavi Del Rio PA-C - 05/20/2019 2:30 PM CST ED NOTE Juan Duran 1960 Chief Complaint Chief Complaint Patient presents with ??? Groin Pain History of Present Illness 59-year-old white male patient with history of kidney stones and diverticulitis presents to the emergency room complaining of left lower quadrant abdominal pain x2 days. Moderate pain with occasionalsharp episodes reported. He also reports urinary frequency. He denies fever, chills, vomiting, diarrhea, constipation, back or flank pain, dysuria, hematuria, genital pain or swelling. States feels like diverticulitis again . No medication taken prior to arrival. States that he ate a hamburger andFrench fries just before arrival, which did not aggravate the pain. Hx T2DM, on medication. POC glucose of 267 on arrival. Medical History ALLERGIES: Allergies Allergen Reactions ??? Penicillins Rash MEDICATIONS: Prior to Admission medications Medication Sig Start Date End Date Taking? Authorizing Provider hydrocodone-acetaminophen (NORCO) 5-325 MG tablet Take 1 tablet by mouth every 6 (six) hours as needed for Pain. Indications: Acute Pain < 3 Day Supply 05/20/19 Yes Pallavi Del Rio PA-C PAST MEDICAL HISTORY: Past Medical History: Diagnosis [...] Systems Review of Systems Constitutional: Negative for activity change, appetite change, fever and unexpected weight change. HENT: Negative for ear pain, sore throat and trouble swallowing. Eyes: Negative. Respiratory: Negative for cough, chest tightness and shortness of breath. Cardiovascular: Negative for chest pain, palpitations and leg swelling. Gastrointestinal: Positive for abdominal pain. Negative for abdominal distention, constipation, diarrhea, nausea and vomiting. Endocrine: Positive for polyuria. Genitourinary: Positive for frequency. Negative for discharge, dysuria, flank pain, genital sores, hematuria, penile pain, penile swelling, scrotal swelling and testicular pain. Musculoskeletal: Negative for arthralgias, back pain, myalgias and neck pain. Skin: Negative for color change, rash and wound. Allergic/Immunologic: Negative for immunocompromised state. Neurological: Negative for dizziness, speech difficulty, weakness, light- headedness, numbness and headaches. Hematological: Negative for adenopathy. Psychiatric/Behavioral: Negative. Physical Exam Filed Vitals: 05/20/19 1412 05/20/19 1541 BP: (!) 146/88 118/81 Pulse: 87 84 Resp: 20 18 Temp: 98 ??F (36.7 ??C) TempSrc: Oral SpO2: 98% 97% Weight: 92.1 kg (203 lb) Height: 5' 8 (1.727 m) Physical Exam Constitutional: He is oriented to person, place, and time. He appears well- developed and well-nourished. No distress. Nontoxic appearance. Pleasant and cooperative HENT: Head: Normocephalic and atraumatic. Right Ear: External ear normal. Left Ear: External ear normal. Nose: Nose normal. Mouth/Throat: Oropharynx is clear and moist. No oropharyngeal exudate. Eyes: Conjunctivae and EOM are normal. Pupils are equal, round, and reactive to light. Neck: Normal range of motion. Neck supple. No tracheal deviation present. No thyromegaly present. Cardiovascular: Normal rate, regular rhythm, normal heart sounds and intact distal pulses. Pulmonary/Chest: Effort normal and breath sounds normal. No respiratory distress. Abdominal: Soft. Bowel sounds are normal. He exhibits no distension and no mass. There is tenderness (LLQ). There is no rebound and no guarding. No hernia. Negative McBurney point. Negative Conte sign. Negative Rovsing and heel tap. No CVA tenderness. Genitourinary: Penis normal. No penile tenderness. Genitourinary Comments: No testicular edema or tenderness on exam. No scrotal edema. No torsion concern. Musculoskeletal: Normal range of motion. He exhibits no edema, tenderness or deformity. Lymphadenopathy: He has no cervical adenopathy. Neurological: He is alert and oriented to person, place, and time. He displays normal reflexes. No cranial nerve deficit or sensory deficit. He exhibits normal muscle tone. Coordination normal. Skin: Skin is warm and dry. Capillary refill takes less than 2 seconds. No rash noted. He is not diaphoretic. No pallor. Psychiatric: He has a normal mood and affect. His behavior is normal. Judgment and thought content normal. Nursing note and vitals reviewed. Diagnostic Studies / Procedures ELECTROCARDIOGRAMS: No results found for this visit on 05/20/19. LABORATORY STUDIES: Results for orders placed or performed during the hospital encounter of 05/20/19 CBC W/DIFF AUTOMATED Result Value Ref Range WBC 16.0 (H) 4.5 - 11.0 x10'3/uL RBC 5.04 4.70 - 6.10 x10'6/uL HGB 15.6 14.0 - 18.0 G/DL HCT 45.8 43.0 - 54.0 % MCV 90.9 80.0 - 94.0 FL MCH 31.0 27.0 - 31.0 PG MCHC 34.1 32.0 - 36.0 G/DL RDW 13.5 11.5 - 14.5 % PLT 229 130 - 400 x10'3/uL MPV 10.0 9.3 - 12.2 FL DIFFERENTIAL TYPE AUTOMATED DIFFERENTIAL NEUTROPHILS 77.6 % LYMPHOCYTES 11.3 % MONOCYTES 7.0 % EOSINOPHILS 3.1 % BASOPHILS 0.4 % IMMATURE GRANS 0.6 % ABS. NEUTROPHILS TOTAL 12.40 (H) 1.80 - 7.70 x10'3/uL ABS. LYMPHOCYTES 1.81 1.00 - 4.80 x10'3/uL ABS. MONOCYTES 1.11 (H) 0.30 - 0.82 x10'3/uL ABS. EOSINOPHILS 0.50 0.04 - 0.54 x10'3/uL ABS. BASOPHILS 0.06 0.01 - 0.08 x10'3/uL ABS. IMMATURE GRANULOCYTES 0.09 0.00 - 0.49 x10'3/uL COMPREHENSIVE METABOLIC PANEL Result Value Ref Range GLUCOSE 287 (H) 70 - 99 MG/DL BUN 14 7 - 18 MG/DL CREATININE 1.16 0.7 - 1.3 MG/DL SODIUM 137 136 - 145 MMOL/L POTASSIUM 4.3 3.5 - 5.1 MMOL/L CHLORIDE 105 100 - 108 MMOL/L CO2 25.6 21 - 32 MMOL/L CALCIUM 9.0 8.5 - 10.1 MG/DL TOTAL BILIRUBIN 0.5 0.2 - 1.2 MG/DL TOTAL PROTEIN 7.5 6.4 - 8.2 G/DL ALBUMIN 3.5 3.4 - 5.0 G/DL AST 9 (L) 15 - 37 U/L ALT 19 16 - 60 U/L ALK PHOS 118 50 - 136 U/L ANION GAP 6.4 5 - 15 MMOL/L BUN CREATININE RATIO 12.1 6 - 26 A/G RATIO 0.9 (L) 1.0 - 2.0 RATIO eGFR Non-Afr. Amer. 70 (L) >90 ML/MIN/1.73 M2 eGFR Afr. Amer. 81 (L) >90 ML/MIN/1.73 M2 LIPASE Result Value Ref Range LIPASE 155 73 - 393 UNITS/L URINALYSIS Result Value Ref Range Specimen Type URINE CLEAN CATCH COLOR YELLOW TRANSPARENCY CLEAR Specific [place] (U) 1.020 1.001 - 1.030 U PH 7.0 5.0 - 9.0 LEUKOCYTE ESTERASE NEGATIVE NEGATIVE NITRITES NEGATIVE NEGATIVE PROTEIN, URINE NEGATIVE <30 MG/DL URINE GLUCOSE >500 (A) NEGATIVE MG/DL U KETONES NEGATIVE NEGATIVE MG/DL UROBILINOGEN NEGATIVE NEGATIVE MG/DL Urine Bilirubin NEGATIVE NEGATIVE MG/DL BLOOD NEGATIVE NEGATIVE CULTURE & SENSITIVITY INDICATED? CULTURE IS NOT INDICATED POCT glucose Result Value Ref Range GLUCOSE POC 267 (H) 70 - 99 mg/dL IMAGING STUDIES CT ABD+PEL WO CON Final Result by User, [id number] (05/20 163) EXAMINATION: CT Abdomen and Pelvis without contrast EXAM DATE/TIME: 05/20/2019 4:10 PM REASON FOR EXAM: LLQ; r/o ureteral stone vs diverticulitis Abdominal pain, unspecified COMPARISON: None TECHNIQUE: Computed tomography of the abdomen and pelvis was obtained without administration of intravenous contrast according to routine protocol. A dose lowering technique was used for this procedure, which may include, but is not limited to, dose reduction technique, automated exposure control, iterative reconstruction, ALARA (As Low As Reasonably Achievable), or Image Gently techniques. FINDINGS: CT abdomen and pelvis: Lung Bases: Small nodule in the right middle lobe anteriorly. Follow-up in 12 months is recommended if the patient's at high risk for pulmonary neoplastic process. 3 mm nodule left lower lobe image 32. Atelectasis in the right lung base. No effusions. Adrenals: Hyperplasia involving the right left adrenal gland. Spleen: Unremarkable. Gallbladder and Biliary system: Cholecystectomy. Pancreas: Unremarkable. Liver: Unremarkable in contour. Kidneys: No evidence of nephrolithiasis or ureterolithiasis is present. Bowel: Sigmoid diverticulosis with acute diverticulitis is present. Moderate amount of inflammation is present. No current evidence of abscess formation. Aorta and Retroperitoneum:No enlarged lymph nodes. Aorta is not aneurysmal. Pelvic Organs: Urinary bladder is unremarkable. Prostate gland is not enlarged. Bone/Musculoskeletal: No aggressive osseous lesions. Free fluid: Minimal about the area of diverticulitis. Additional Findings: other =====IMPRESSION:===== Sigmoid diverticulosis with acute diverticulitis is present. No abscess formation Indeterminate nodule within the right middle lobe and left lower lobe. Follow-up in 12 months if the patient's at high risk for pulmonary neoplastic process. Course / Medical Decision Making MDM Number of Diagnoses or Management Options Amount and/or Complexity of Data Reviewed Clinical lab tests: ordered and reviewed Tests in the radiology section of CPT??: ordered and reviewed Tests in the medicine section of CPT??: ordered Patient is in no acute distress, vital signs are stable, afebrile. No sirs criteria per vital signs. Abdominal exam as mentioned. No CVA tenderness. Unremarkable genital exam. Labs with leukocytosis at 16 and glucose at 287. Patient admits to being diabetic, and states that he had fast food just prior to arrival. No other pertinent laboratory findings. No other sirs criteria noted. No sepsis diagnosis. CT abdomen/pelvis with diverticulosis, but no acute diverticulitis or abscess formation. No renal stone identified. Incidental lung nodule findings, which are explained to patient. He is aware of lung nodules, and is being followed by PCP for this. Percocet given with relief. Will discharge home with PCP follow-up. Return precautions to the emergency room given, patient voices understanding. Medications oxyCODONE-acetaminophen (PERCOCET) 5-325 MG tablet 1 tablet (1 tablet Oral Given 05/20/19 9028) Clinical Impression Left lower quadrant abdominal pain (Primary) Lung nodule Diverticulosis Current Discharge Medication List START taking these medications Details hydrocodone-acetaminophen (NORCO) 5-325 MG tablet Take 1 tablet by mouth every 6 (six) hours as needed for Pain. Indications: Acute Pain < 3 Day Supply Qty: 8 tablet, Refills: 0 Class: Print Disposition: Discharge Follow-Up: Ladarius Saini MD [id number] [facility] [id number] In 3 days PALLAVI DEL RIO PA-C 05/20/2019 Pallavi Del Rio PA-C 05/20/19 3442 Cosigned by German Hsieh MD at 05/20/2019 5:04 PM [employer] * Juhi Hernandez RN - 05/20/2019 2:12 PM CST Reports lower abdominal pain radiating down to groin x 2 days. Also reports urinary frequency. Denies fever/chills. Reports hx of diverticulitis. Denies n/v/d. Hx DM. Accucheck 267 in triage. [employer] documented in this encounter Plan of Treatment Not on file documented as of this encounter Procedures Procedure Name Priority Date/Time Associated Diagnosis Comments CT ABD+PEL WO CON STAT 05/20/2019 4:1 0 PM [employer] URINALYSIS STAT 05/20/2019 2:42 PM [employer] COMPREHENSIVE METABOLIC PANEL STAT 05/20/2019 2:38 PM [employer] CBC W/DIFF AUTOMATED STAT 05/20/2019 2:38 PM [employer] LIPASE STAT 05/20/2019 2:38 PM [employer] POCT GLUCOSE - MARTINEZ DOCKED DEVICE Routine 05/20/2019 2:21 PM [employer] documented in this encounter Results * CT ABD+PEL WO CON (05/20/2019 4:10 PM [employer]) Anatomical Region Laterality Modality Abdomen Computed Tomogra phy 05/20/2019 4:23 PM [employer] Impressions 05/20/2019 4:29 PM [employer] =====IMPRESSION:===== Sigmoid diverticulosis with acute diverticulitis is present. No abscess formation Indeterminate nodule within the right middle lobe and left lower lobe. Follow-up in 12 months if the patient's at high risk for pulmonary neoplastic process. Narrative 05/20/2019 4:29 PM [employer] EXAMINATION: CT Abdomen and Pelvis without contrast EXAM DATE/TIME: 05/20/2019 4:10 PM REASON FOR EXAM: ??LLQ; r/o ureteral stone vs diverticulitis Abdominal pain, unspecified ? COMPARISON: None TECHNIQUE: Computed tomography of the abdomen and pelvis was obtained without administration of intravenous contrast according to routine protocol. A dose lowering technique was used for this procedure, which may include, but is not limited to, dose reduction technique, automated exposure control, iterative reconstruction, ALARA (As Low As Reasonably Achievable), or Image Gently techniques. FINDINGS: CT abdomen and pelvis: Lung Bases: Small nodule in the right middle lobe anteriorly. Follow-up in 12 months is recommended if the patient's at high risk for pulmonary neoplastic process. 3 mm nodule left lower lobe image 32. Atelectasis in the right lung base. No effusions. ?? Adrenals: Hyperplasia involving the right left adrenal gland. Spleen: Unremarkable. Gallbladder and Biliary system: Cholecystectomy. Pancreas: Unremarkable. Liver: Unremarkable in contour. Kidneys: No evidence of nephrolithiasis or ureterolithiasis is present. Bowel: Sigmoid diverticulosis with acute diverticulitis is present. Moderate amount of inflammation is present. No current evidence of abscess formation. Aorta and Retroperitoneum:No enlarged lymph nodes. Aorta is not aneurysmal. Pelvic Organs: Urinary bladder is unremarkable. Prostate gland is not enlarged. Bone/Musculoskeletal: No aggressive osseous lesions. Free fluid: ??Minimal about the area of diverticulitis. Additional Findings: other Procedure Note Manuel Yang MD - 05/20/2019 EXAMINATION: CT Abdomen and Pelvis without contrast EXAM DATE/TIME: 05/20/2019 4:10 PM REASON FOR EXAM: LLQ; r/o ureteral stone vs diverticulitis Abdominal pain, unspecified COMPARISON: None TECHNIQUE: Computed tomography of the abdomen and pelvis was obtained without administration of intravenous contrast according to routine protocol. A dose lowering technique was used for this procedure, which mayinclude, but is not limited to, dose reduction technique, automated exposure control, iterative reconstruction, ALARA (As Low As ReasonablyAchievable), or Image Gently techniques. FINDINGS: CT abdomen and pelvis: Lung Bases: Small nodule in the right middle lobe anteriorly. Follow-upin 12 months is recommended if the patient's at high risk for pulmonary neoplastic process. 3 mm nodule left lower lobe image 32. Atelectasis in the right lung base. No effusions. Adrenals: Hyperplasia involving the right left adrenal gland. Spleen: Unremarkable. Gallbladder and Biliary system: Cholecystectomy. Pancreas: Unremarkable. Liver: Unremarkable in contour. Kidneys: No evidence of nephrolithiasis or ureterolithiasis is present. Bowel: Sigmoid diverticulosis with acute diverticulitis is present. Moderate amount of inflammation is present. No current evidence ofabscess formation. Aorta and Retroperitoneum:No enlarged lymph nodes. Aorta is notaneurysmal. Pelvic Organs: Urinary bladder is unremarkable. Prostate gland is not enlarged. Bone/Musculoskeletal: No aggressive osseous lesions. Free fluid: Minimal about the area of diverticulitis. Additional Findings: other =====IMPRESSION:===== Sigmoid diverticulosis with acute diverticulitis is present. No abscess formation Indeterminate nodule within the right middle lobe and left lower lobe. Follow-up in 12 months if the patient's at high risk for pulmonary neoplastic process. Pallavi Del Rio PA-C CT Final Resul t * (ABNORMAL) URINALYSIS (05/20/2019 2:42 PM [employer]) SPECIMEN TYPE URINE CLEAN CATCH 05/20/2019 2:42 PM [employer] COLOR (U) YELLOW 05/20/2019 2:49 PM [facility] TRANSPARENCY CLEAR 05/20/2019 2:49 PM [facility] SPECIFIC GRAVITY (U) 1.020 1.001 - 1.030 05/20/2019 2:49 PM [facility] U PH 7.0 5.0 - 9.0 05/20/2019 2:49 PM [facility] LEUKOCYTES (U) NEGATIVE NEGATIVE 05/20/2019 2:49 PM [facility] NITRITES NEGATIVE NEGATIVE 05/20/2019 2:49 PM [facility] PROTEIN (U) NEGATIVE <30 MG/DL 05/20/2019 2:49 PM [facility] URINE GLUCOSE >500(A) NEGATIVE MG/DL 05/20/2019 2:49 PM [facility] KETONES MG/DL (U) NEGATIVE NEGATIVE MG/DL 05/20/2019 2:49 PM [facility] UROBILINOGEN NEGATIVE NEGATIVE MG/DL 05/20/2019 2:49 PM [facility] BILIRUBIN (U) NEGATIVE NEGATIVE MG/DL 05/20/2019 2:49 PM [facility] BLOOD (U) NEGATIVE NEGATIVE 05/20/2019 2:49 PM [facility] CULTURE & SENSITIVITY INDICATED? CULTURE IS NOT INDICATED 05/20/2019 2:49 PM [employer] URINE SPECIMEN OBTAINED BY CLEAN CATCH PROCEDURE / Unknown 05/20/2019 2:42 PM [employer] us Pallavi Del Rio PA-C URINE ORDERABLES Final Resu lt [facility] [address] [place] [address], * LIPASE (05/20/2019 2:38 PM [employer]) LIPASE 155 73 - 393 UNITS/L 05/20/2019 3:10 PM [employer] 05/20/2019 2:38 PM [employer] Pallavi Del Rio PA-C LABORATORY Final Resul t Performing Organization Address [facility] Co de Phone Number [facility] [address] [place] [address], [place] [phone] * (ABNORMAL) COMPREHENSIVE METABOLIC PANEL (05/20/2019 2:38 PM [employer]) GLUCOSE 287(H) 70 - 99 MG/DL 05/20/2019 3:10 PM [facility] BUN 14 7 - 18 MG/DL 05/20/2019 3:10 PM [facility] CREATININE S/P/B 1.16 0.7 - 1.3 MG/DL 05/20/2019 3:10 PM [facility] SODIUM S/P/B 137 136 - 145 MMOL/L 05/20/2019 3:10 PM [facility] POTASSIUM S/P/B 4.3 3.5 - 5.1 MMOL/L 05/20/2019 3:10 PM [facility] CHLORIDE S/P/B 105 100 - 108 MMOL/L 05/20/2019 3:10 PM [facility] CO2 25.6 21 - 32 MMOL/L 05/20/2019 3:10 PM [facility] CALCIUM S/P/B 9.0 8.5 - 10.1 MG/DL 05/20/2019 3:10 PM [facility] BILIRUBIN TOTAL S/P/B 0.5 0.2 - 1.2 MG/DL 05/20/2019 3:10 PM [facility] TOTAL PROTEIN S/P/B 7.5 6.4 - 8.2 G/DL 05/20/2019 3:10 PM [facility] ALBUMIN S/P/B 3.5 3.4 - 5.0 G/DL 05/20/2019 3:10 PM [facility] AST 9(L) 15 - 37 U/L 05/20/2019 3:10 PM [facility] ALT 19 16 - 60 U/L 05/20/2019 3:10 PM [facility] ALKALINE PHOSPHATASE S/P/B 118 50 - 136 U/L 05/20/2019 3:10 PM [facility] ANION GAP 6.4 5 - 15 MMOL/L 05/20/2019 3:10 PM [facility] BUN CREATININE RATIO 12.1 6 - 26 05/20/2019 3:10 PM [facility] A/G RATIO 0.9(L) 1.0 - 2.0 RATIO 05/20/2019 3:10 PM [facility] EGFR NON-AFR. AMER. 70(L) >90 ML/MIN/1.7 3 M2 05/20/2019 3:10 PM [facility] EGFR AFR. AMER. 81(L) >90 ML/MIN/1.7 3 M2 05/20/2019 3:10 PM [employer] [facility] Comment: NOTE: eGFR is not calculated for patients <18 years of age. This is an estimated GFR (CKD EPI) and should not be used for calculating drug doses. 05/20/2019 2:38 PM [employer] us Pallavi Del Rio PA-C LABORATORY Final Resul t [facility] [address] [place] [address], [place] [phone] * (ABNORMAL) CBC W/DIFF AUTOMATED (05/20/2019 2:38 PM [employer]) WBC 16.0(H) 4.5 - 11.0 x10'3/uL 05/20/2019 2:50 PM [employer] [facility] RBC 5.04 4.70 - 6.10 x10'6/uL 05/20/2019 2:50 PM [facility] HGB 15.6 14.0 - 18.0 G/DL 05/20/2019 2:50 PM [facility] HCT 45.8 43.0 - 54.0 % 05/20/2019 2:50 PM [facility] MCV 90.9 80.0 - 94.0 FL 05/20/2019 2:50 PM [employer] MCH 31.0 27.0 - 31.0 PG 05/20/2019 2:50 PM [employer] MCHC 34.1 32.0 - 36.0 G/DL 05/20/2019 2:50 PM [facility] RDW 13.5 11.5 - 14.5 % 05/20/2019 2:50 PM [facility] PLT 229 130 - 400 x10'3/uL 05/20/2019 2:50 PM [facility] MPV 10.0 9.3 - 12.2 FL 05/20/2019 2:50 PM [facility] DIFFERENTIAL TYPE AUTOMATED DIFFERENTIAL 05/20/2019 2:50 PM [facility] NEUTROPHILS % 77.6 % 05/20/2019 2:50 PM [facility] LYMPHOCYTES % 11.3 % 05/20/2019 2:50 PM [facility] MONOCYTES % 7.0 % 05/20/2019 2:50 PM [facility] EOSINOPHILS 3.1 % 05/20/2019 2:50 PM [facility] BASOPHILS 0.4 % 05/20/2019 2:50 PM [facility] IMMATURE GRANS % 0.6 % 05/20/20 19 2:50 PM [facility] ABS. NEUTROPHILS TOTAL 12.40(H) 1.80 - 7.70 x10'3/uL 05/20/2019 2:50 PM [facility] ABS. LYMPHOCYTES 1.81 1.00 - 4.80 x10'3/uL 05/20/2019 2:50 PM [facility] ABS. MONOCYTES 1.11(H) 0.30 - 0.82 x10'3/uL 05/20/2019 2:50 PM [facility] ABS. EOSINOPHILS 0.50 0.04 - 0.54 x10'3/uL 05/20/2019 2:50 PM [facility] ABS. BASOPHILS 0.06 0.01 - 0.08 x10'3/uL 05/20/2019 2:50 PM [facility] ABS. IMMATURE GRANULOCYTES 0.09 0.00 - 0.49 x10'3/uL 05/20/2019 2:50 PM [facility] 05/20/2019 2:38 PM [employer]MER us Pallavi Del Rio PA-C LABORATORY Final Resul t [facility] [address] [place] [address], [place] [phone] * (ABNORMAL) POCT glucose (05/20/2019 2:21 PM [employer] FORMER) [facility] GLUCOSE POC 267(H) 70 - 99 mg/dL 05/20/2019 2:24 PM [employer] FORMER [facility] ORDERS INTERFACE 05/20/2019 2:21 PM [employer] FORMER us Attending Physician Emergency MD POCT ORDERABLES - DEVICE Final Result Performing Organization Address City/[facility]/ZIP Co de Phone Number [facility] ORDERS INTERFACE US documented in this encounter Visit Diagnoses Diagnosis Left lower quadrant abdominal pain- Primary Lung nodule Solitary pulmonary nodule Diverticulosis Diverticulosis of colon (without mention of hemorrhage) documented in this encounter Administered Medications Inactive Administered Medications - up to 3 most recent administrations Medication Order MAR Action Action Date Dose Rate Site oxyCODONE-acetaminophen (PERCOCET) 5-325 MG tablet 1 tablet 1 tablet, Oral, Once, 1 dose, On Sun05/20/19 at 1545, Maximum dose of acetaminophen is 4000 mg from all sources in 24 hours. Given 05/20/2019 3:45 PM [employer]MER 1 tablet documented in this encounter Active and Recently Administered Medications Times are shown in [employer]. Scheduled Medication Order 05/18/2019 05/19/2019 05/20/2019 oxyCODONE-acetaminophen (PERCOCET) 5-325 MG tablet 1 tablet (COMPLETED) 1 tablet, Oral, Once, 1 dose, On Sun05/20/19 at 1545, Maximum dose of acetaminophen is 4000 mg from all sources in 24 hours. 1545 (Given - Provid er: Cristina Mack RN) documented in this encounter Care Teams Funeral Director Relationship Specialty Start Date End Date Ladarius Saini MD [address] [place] [address] PCP - General INTERNAL MEDICINE 05/20/19 documented as of this encounter
--- OUTSIDE RECORDS SUMMARY | 2024-06-03 10:59 | XMS_ITS | Encounter Summary ---
Author Organization [facility] Address [facility]. [place], [place] [address] [place] [address] Care Team Providers Care Arbor End Mainspring Former Name Role Phone Unavailable Primary Care Provider Unavailabl e Encounter Details Date Type Department Care Team (Late st Contact Info) Description 10/03/2002 Abstract [facility] CONVERSION [address] [place] [address] , Generic Conversion, Social History Tobacco Use [...]
--- OUTSIDE RECORDS SUMMARY | 2024-06-03 10:59 | XMS_ITS | Clinical Summary ---
Author Organization [facility] Address [facility]. [place], [place] [address] [place] [address] Care Team Providers Care Customer Support Associate Name Role Phone Ladarius Saini MD Primary Care Provider [phone] Allergies Active Allergy Reactions Criticality Noted Date Comments Penicillins Rash Low 05/20/2019 Medications amLODIPine 10 MG tablet Take 10 mg by mouth daily. 1 03/05/2019 Active atorvastatin 80 MG tablet Take 80 mg by mouth daily. 0 12/02/2018 Active losartan 100 MG tablet Take 100 mg by mouth daily. 1 03/18/2019 Active metFORMIN 1000 MG tablet Take 1,000 mg by mouth 2 (two) times daily with meals. 2 03/05/2019 Active pantoprazole EC 40 MG tablet Take 40 mg by mouth 2 (two) times daily. 0 12/02/2018 Active Social History Tobacco Use Types Packs/Day Years Used Date Smoking Tobacco: Every Day Smokeless Tobacco: Never Alcohol Use Standard Drinks/Week Comments Yes 0 (1 standard drink = 0.6 oz pur e alcohol) Sex and Gender Information Value Date Recorded Sex Assigned at Not on file Legal Sex Male 7:41 PM CDT Gender Identity Not on file Sexual Orientation Not on file Last Filed Vital Signs Vital Sign Reading [...] Mass Index 32.23 11/23/2019 7:00 PM CDT Plan of Treatment Health Maintenance Due Date Last Done Comments Colorectal Cancer Screening Colonoscopy (10 Years) 1962 Annual Physical 1965 Pneumococcal Vaccine: Pediat rics (0 to 5 Years) and At-Risk Patients (6 to 64 Years) (1 of 2 - PCV) 02/15/1968 Hepatitis C 02/15/1980 DTaP, Tdap and Td Vaccines ( 1 - Tdap) 1981 Zoster Vaccines (1 of 2) 02/15/2012 RSV Immunization or 60+ Years (1 - 1-dose 60+ series) 2022 COVID-19 Vaccine ( - 2023-2 5 season) 2024 Influenza Adult (#1) 2024 Meningococcal Vaccine Aged Out No kamla glenn eligible based on patient's age to complete this topic RSV Immunizations Under 20 Months Aged Out No longer eligible based on patient's age to complete this topic Insurance [employer] Care Teams Customer Support Associate Relationship Specialty Start Date End Date Ladarius Saini MD [address] [place] [address] PCP - General INTERNAL MEDICINE 05/20/19
--- OUTSIDE RECORDS SUMMARY | 2024-06-03 10:59 | XMS_ITS | Encounter Summary ---
Author Organization [facility] Address [facility]. [place], [place] [address] [place] [address] Care Team Providers Care Video Library Assistant Name Role Phone Unavailable Primary Care Provider Unavailabl e Encounter Details Date Type Department Care Team (Late st Contact Info) Description 06/08/1992 [place] [address] , Generic Conversion, Social History Tobacco Use [...]
== END 2024-05-30 18:12 | disposition home or self-care (01) ==
LOC: ANHED 17:47
PROVIDERS: Emergency Medicine; Emergency Provider Emergency Medicine; PCP Family Medicine
DX: R10.32 Left lower quadrant pain (principal); I10 Essential (primary) hypertension; J43.9 Emphysema, unspecified; E55.9 Vitamin D deficiency, unspecified; E78.2 Mixed hyperlipidemia; E11.9 Type 2 diabetes mellitus without complications; K76.0 Fatty (change of) liver, not elsewhere classified; Z79.4 Long term (current) use of insulin; Z79.84 Long term (current) use of oral hypoglycemic drugs; Z79.899 Other long term (current) drug therapy
CPT/HCPCS: 36415; 74177; 80053; 85025; 99284; Q9967

== ENCOUNTER 2024-09-03 10:45 | Outpatient (RCR) | payer OTHER, SELFPAY ==
[2024-08-06 10:48] VITALS: BMI 33.7
[2024-08-06 10:50] VITALS: BMI 33.7
[2024-09-03 10:50] VITALS: BMI 32.9
[2024-09-03 10:52] VITALS: BMI 32.9
== END 2024-10-27 09:25 | disposition home or self-care (01) ==
LOC: ANHDMC 10:45
PROVIDERS: PCP Family Medicine; Visit Provider Family Medicine
DX: E11.9 Type 2 diabetes mellitus without complications (principal); Z71.3 Dietary counseling and surveillance
CPT/HCPCS: 97802; 97803

== ENCOUNTER 2025-03-20 02:44 | Day surgery (SDC) | payer OTHER, SELFPAY ==
[2025-03-10 15:54] VITALS: BMI 32.7
--- OUTSIDE RECORDS SUMMARY | 2025-03-20 02:47 | XMS_ITS | Clinical Summary ---
Author Organization [facility] Donta Rojasriaz Address [address] [address] Care Team Providers Care Infantry Unit Leader Name Role Phone Zhang Bowen MD Primary Care Provider [phone] Allergies Active Allergy Reactions Criticality Noted Date Comments Penicillins Rash Low 05/20/2019 Medications metFORMIN (GLUCOPHAGE) 1,000 mg tablet Take 1,000 mg by mouth 2 times daily with meals. Active amLODIPine (NORVASC) 5 mg tablet Take 5 mg by mouth daily. Active losartan (COZAAR) 100 mg tablet Take 100 mg by mouth daily. Active atorvastatin calcium (ATORVASTATIN ORAL) Take by mouth. Active pantoprazole (PROTONIX) 40 mg Tablet, Delayed Release (E.C.) Take 40 mg by mouth daily. Active ferrous sulfate 325 mg (65 mg iron) tablet Take 325 mg by mouth daily. Active multivitamin (DAILY-SHANNON) tablet Take 1 Tablet by mouth daily. Active Active Problems No known active problems Family History Medical History Relation Name Comments Diabetes Father Relation Name Status Comments Father Social History Tobacco Use Types Packs/Day Years Used Date Smoking Tobacco: Every Day Cigarettes Smokeless Tobacco: Never Sex and Gender Information Value Date Recorded Sex Assigned at Not on file Legal Sex Male 11:27 AM CDT Gender Identity Not on file Sexual Orientation Not on file Last Filed Vital Signs Vital Sign Reading Time Taken Comments Blood Pressure 138/71 03/27/2023 1:51 PM CDT Pulse 80 03/27/2023 1:51 PM CDT Temperature 36.5 C (97.7 F) 03/27/2023 1:51 PM CDT Respiratory Rate 10 03/27/2023 1:51 PM CDT Oxygen Saturation 99% 03/27/2023 1:51 PM CDT Inhaled Oxygen Concentration - - Weight 97.1 kg (214 lb) 03/27/2023 1:51 PM CDT Height - - Body Mass Index - - Plan of Treatment Health Maintenance Due Date Last Done Comments DTAP/TDAP/TD VACCINES (1 - Tdap) 1981 COLORECTAL SCREENING 2007 Colorectal Cancer Screening 2007 FIT-DNA Q 3 years 2007 FIT/FOBT Q 1 year 2007 Flex Sig/CT Colonography Q 5 years 2007 ZOSTER VACCINE (1 of 2) 02/15/2012 INFLUENZA VACCINE (#1) 2025 RSV VACCINE (60+ or ) (1 - 1-dose 75+ series) 2037 Insurance POS II Care Teams Infantry Unit Leader Relationship Specialty Start Date End Date Zhang Bowen MD [address] [place] [id number] PCP - General Family Practice 02/27/23
[2025-03-20 12:42] VITALS: BP 146/80; PULSE 73; RESP 16; TEMP 36.4; O2SAT 98; BMI 32.4
[2025-03-20] MEDS: LACTATED RINGERS 1,000 ML 150 ML IV CONT (12:55)
--- NOTE | 2025-03-20 13:39 | PM.IMHP ---
H&P: HPI History of Present Illness Date/Time: 03/20/25 13:39 Chief Complaint: History of colon polyps Narrative: The patient has a history of Multiple colonic polyps, the last colonoscopy was 2 years ago. Review of Systems Review of Systems: All systems reviewed & are unremarkable except as noted in HPI and below PMFSH Past Medical History Medical History Essential (primary) hypertension Hypovitaminosis D Mixed hyperlipidemia Pulmonary emphysema Pulmonary nodule Tobacco use Type 2 diabetes mellitus without complication Surgical History Surgical History History of cholecystectomy Family History Family History Father Family history of diabetes mellitus in first degree relative Mother Family history of lung cancer Family history of gallbladder disease Family history of malignant neoplasm Sibling Family history of gallbladder disease Social History Social History Smoking packs per day: 1.5 Smoking cigarettes per day: 30.0 Years smoked: 50 Smoking pack-years: 75.00 Smoking status: Current every day smoker Tobacco type: cigarettes Alcohol intake: current Drinks per week: 25 Alcohol use details: 5-6 daily Substance use: current Substance use type: marijuana Last use: 2 days ago Lack of Transportation: No Lack of Food: Never True Current Housing: I Have Housing Concerned About Future Housing: No Difficulty Paying Gas/Electric Bills: No Difficulty Paying for Meds: No Currently Unemployed: No Education: High School Diploma/GED Difficulty w/ Childcare or Family Care: No Living arrangements: with family Spiritual care concerns: No Meds Home Medications and Allergies Home Medications ?Medication ?Instructions ?Recorded ?Confirmed ?Type blood sugar diagnostic, drum ##1 10/20/19 02/20/24 History blood sugar diagnostic #10 jermain 11/06/19 02/20/24 Rx blood sugar diagnostic (Blood #200 ea 11/17/19 02/20/24 Rx Glucose Test strips) blood-glucose meter #1 ea 11/17/19 02/20/24 Rx albuterol sulfate 90 mcg/actuation 1 inh inhalation Q4H PRN shortness 01/16/23 03/10/25 Rx aerosol inhaler of breath or wheezing #8.5 grams ferrous sulfate 325 mg (65 mg 325 mg PO DAILY #90 tabs 02/16/23 03/10/25 Rx iron) tablet,delayed release Vitamin D2 5,000 units PO DAILY 02/26/23 03/20/25 History blood-glucose sensor (FreeStyle #1 ea 06/03/24 06/03/24 Rx Christa 3 Plus Sensor device) blood-glucose,general internal medicine doctor,cont #1 ea 07/16/24 07/16/24 Rx (FreeStyle Christa 3 [place]) sildenafil 100 mg tablet 100 mg PO DAILY PRN sexual 07/16/24 03/10/25 Rx activity #15 tabs blood-glucose sensor (Dexcom G7 #4 ea 10/21/24 10/21/24 Rx Sensor device) blood-glucose,general internal medicine doctor,cont #1 ea 11/21/24 Rx (Dexcom G7 Single Fold Machine Operator) losartan 100 mg tablet 100 mg PO DAILY #90 tabs 12/24/24 03/20/25 Rx pen needle, diabetic 32 gauge x #100 ea 01/27/25 Rx insulin glargine 100 unit/mL (3 45 unit (0.45 mL) subcut QAM #15 mL 02/02/25 03/10/25 Rx mL) subcutaneous pen (Lantus Solostar U-100 Insulin) amlodipine 10 mg tablet 10 mg PO DAILY #90 tabs 03/10/25 03/20/25 Rx atorvastatin 80 mg tablet 80 mg PO DAILY #90 tabs 03/10/25 03/20/25 Rx metformin 1,000 mg tablet See Rx Instructions .Route 03/10/25 03/20/25 Rx .COMPLEX #180 tabs pantoprazole 40 mg tablet,delayed 40 mg PO QAM #90 tabs 03/10/25 03/20/25 Rx release (Protonix) Allergies Allergy/AdvReac Type Severity Reaction Status Date / Time Penicillins Allergy Mild pt does Verified 03/20/25 12:41 not know Vital Signs Vital Signs - 24 hr 03/20/25 12:42 Temperature 97.6 F Pulse Rate 73 Respiratory Rate 16 Blood Pressure 146/80 H Pulse Oximetry 98 Oxygen Delivery Room Air Exam Const: General: cooperative and healthy appearing Resp: Effort & Inspection: normal respiratory effort and able to speak in complete sentences Auscultation: clear to auscultation bilaterally Cardio: Rate: regular rate Rhythm: regular rhythm GI: Inspection: normal to inspection GI Palp: No No hepatosplenomegaly present Auscultation: normal bowel sounds Rectal Exam: deferred Skin: General skin exam: normal color Psych: Appearance: grossly normal Mental Status: mental status grossly normal Assessment and Plan Assessment and plan (1) History of colonic polyps: Code(s): Z86.0100 - Personal history of colon polyps, unspecified Status: Acute Assessment and Plan: The patient is deemed a good candidate for the procedure. Consent signed. Will proceed.
--- NOTE | 2025-03-20 13:53 | WPDANESEPPF ---
Anes - Initial Pre Proc Eval Procedure: Operation Date: 03/20/25 14:00 Proposed Procedures p Diagnostic Colonoscopy - Nii Pham MD Date/Time: 03/20/25 13:53 Surgeon: Nii Pham MD Pre Op Diagnosis: Abnormal findings on diagnostic imaging of other p Patient Data Age: 65 Gender: M Height: 1.73 m Weight: 96.8 kg Last Vital Signs Temp 97.6 F 03/20/25 12:42 Pulse 73 03/20/25 12:42 Resp 16 03/20/25 12:42 BP 146/80 H 03/20/25 12:42 Pulse Ox 98 03/20/25 12:42 O2 Del Method Room Air 03/20/25 12:42 Allergies Allergy/AdvReac Type Severity Reaction Status Date / Time Penicillins Allergy Mild pt does Verified 03/20/25 12:41 not know Home Medications ?Medication ?Instructions ?Recorded ?Confirmed ?Type blood sugar diagnostic, drum ##1 10/20/19 02/20/24 History blood sugar diagnostic #10 ea 11/06/19 02/20/24 Rx blood sugar diagnostic (Blood #200 ea 11/17/19 02/20/24 Rx Glucose Test strips) blood-glucose meter #1 ea 11/17/19 02/20/24 Rx albuterol sulfate 90 mcg/actuation 1 inh inhalation Q4H PRN shortness 01/16/23 03/10/25 Rx aerosol inhaler of breath or wheezing #8.5 grams ferrous sulfate 325 mg (65 mg 325 mg PO DAILY #90 tabs 02/16/23 03/10/25 Rx iron) tablet,delayed release Vitamin D2 5,000 units PO DAILY 02/26/23 03/20/25 History blood-glucose sensor (FreeStyle #1 ea 06/03/24 06/03/24 Rx Christa 3 Plus Sensor device) blood-glucose,dev manager,cont #1 ea 07/16/24 07/16/24 Rx (FreeStyle Christa 3 [place]) sildenafil 100 mg tablet 100 mg PO DAILY PRN sexual 07/16/24 03/10/25 Rx activity #15 tabs blood-glucose sensor (Dexcom G7 #4 ea 10/21/24 10/21/24 Rx Sensor device) blood-glucose,dev manager,cont #1 ea 11/21/24 Rx (Dexcom G7 [place]) losartan 100 mg tablet 100 mg PO DAILY #90 tabs 12/24/24 03/20/25 Rx pen needle, diabetic 32 gauge x #100 ea 01/27/25 Rx insulin glargine 100 unit/mL (3 45 unit (0.45 mL) subcut QAM #15 mL 02/02/25 03/10/25 Rx mL) subcutaneous pen (Lantus Solostar U-100 Insulin) amlodipine 10 mg tablet 10 mg PO DAILY #90 tabs 03/10/25 03/20/25 Rx atorvastatin 80 mg tablet 80 mg PO DAILY #90 tabs 03/10/25 03/20/25 Rx metformin 1,000 mg tablet See Rx Instructions .Route 03/10/25 03/20/25 Rx .COMPLEX #180 tabs pantoprazole 40 mg tablet,delayed 40 mg PO QAM #90 tabs 03/10/25 03/20/25 Rx release (Protonix) Patient hx anesthesia problems: none Family hx anesthesia problems: none Results Review: All pre-operative results and documents have been reviewed as part of the pre-operative evaluation. [facility] Past Medical History Medical History Hypovitaminosis D Tobacco use Essential (primary) hypertension Mixed hyperlipidemia Pulmonary emphysema Pulmonary nodule Type 2 diabetes mellitus without complication Surgical History Surgical History History of cholecystectomy Family History Family History Father Family history of diabetes mellitus in first degree relative Mother Family history of lung cancer Family history of gallbladder disease Family history of malignant neoplasm Sibling Family history of gallbladder disease Social History Social History Smoking packs per day: 1.5 Smoking cigarettes per day: 30.0 Years smoked: 50 Smoking pack-years: 75.00 Smoking status: Current every day smoker Tobacco type: cigarettes Alcohol intake: current Drinks per week: 25 Alcohol use details: 5-6 daily Substance use: current Substance use type: marijuana Last use: 2 days ago Lack of Transportation: No Lack of Food: Never True Current Housing: I Have Housing Concerned About Future Housing: No Difficulty Paying Gas/Electric Bills: No Difficulty Paying for Meds: No Currently Unemployed: No Education: High School Diploma/GED Difficulty w/ Childcare or Family Care: No Living arrangements: with family Spiritual care concerns: No Anes - Eval Final PreProcedure Day of Procedure 03/20/25 13:53 Patient weight: obese Lungs: normal air movement Airway: Mallampati scale class II Neurological: alert and oriented Last oral intake: >/= 8 hours ASA classification: III Emergent: no Anesthetic plan: proceed Anesthesia type and monitoring: general GIVS and standard monitoring Results Review: All pre-operative results and documents have been reviewed as part of the pre-operative evaluation. HTN, hyperlipidemia, DM, BMI 32, current smoker/cannabis. Informed Consent: The patient's anesthetic plan and its attendant risks and benefits were discussed with the patient/family/POA. Questions were solicited and answers provided to the satisfaction of the patient/family/POA.
[2025-03-20] MEDS: SIMETHICONE ORAL SUSPENSION 20 MG/0.3 ML 30 ML BOTTLE 0.6 ML IRRIGATION (14:24)
--- NOTE | 2025-03-20 15:07 | S_PTH ---
PATIENT: Juan Duran Jr. LOC: [facility] U#:[id number] AGE/SX: 65/M ROOM: RE03/20/[address]: Nii Pham MD : 1960 BED: DIS: 03/20/2025 SPEC #: [id number] RECD: 03/23/25 08:56 STATUS: ANGELICA REQ #: [id number] DORY: 03/20/25 15:[address]: Nii Pham DEPT: [facility] Surgical RECD BY: Ashtyn Grover ENTERED: 03/23/25 08:58 SP TYPE: Surgical OTHR DR: Zhang Bowen MD Tissues: A - Colon Polypectomy B - Colon Polypectomy C - Colon Polypectomy D - Colon Polypectomy Procedures: Hematoxylin and Eosin Stain Gross and Microscopic Level 4
[2025-03-20 15:11] VITALS: BP 93/51; PULSE 65; RESP 20; O2SAT 98
[2025-03-20 15:21] VITALS: BP 115/85; PULSE 61; RESP 21; O2SAT 98
--- NOTE | 2025-03-20 15:24 | SUR.PHASEII ---
blood sugar was 112 per patients continuos glucose monitor.
[2025-03-20 15:31] VITALS: BP 118/80; PULSE 60; RESP 20; O2SAT 98
== END 2025-03-20 15:40 | disposition home or self-care (01) ==
PROVIDERS: PCP Family Medicine; Referring Provider Family Medicine; Visit Provider Internal Medicine Gastroenterology
PROC: 0DJD8ZZ Inspection of Lower Intestinal Tract, Via Natural or Artificial Opening Endoscopic (ICD-10-PCS; CPT 45378; principal; 2025-03-20 14:00)
DX: Z12.11 Encounter for screening for malignant neoplasm of colon (principal); D12.2 Benign neoplasm of ascending colon; D12.3 Benign neoplasm of transverse colon; D12.4 Benign neoplasm of descending colon; D12.5 Benign neoplasm of sigmoid colon; K57.30 Diverticulosis of large intestine without perforation or abscess without bleeding; F17.210 Nicotine dependence, cigarettes, uncomplicated; F12.90 Cannabis use, unspecified, uncomplicated; E66.9 Obesity, unspecified; Z68.32 Body mass index [BMI] 32.0-32.9, adult
CPT/HCPCS: 45385; 88305; J2003; J2704; J7120

== ENCOUNTER 2025-04-10 09:27 | Outpatient (CLI) | payer OTHER, SELFPAY ==
--- NOTE | ~2025-04-10 | CT_ITS ---
EXAMINATION: CT lung screening DATE: 04/10/2025 09:41 INDICATION: Personal history of nicotine dependence TECHNIQUE: Computed tomography (CT) of the chest was performed without intravenous contrast. The dose-length product was 222.42 mGy-cm. Automated exposure control and iterative reconstruction technique were employed. COMPARISON: None FINDINGS: There is a hiatal hernia with thickening of the distal esophagus, consistent with esophagitis. Heart size normal. No significant pleural or pericardial effusion. Status post cholecystectomy. There is atherosclerosis of the aorta and coronary arteries. Heart size normal. There is mediastinal l ymphadenopathy. Right paratracheal lymph node measures 1.6 cm short axis. This is unchanged from prior study. There is emphysema. No significant change to 6 mm left lower lobe pulmonary nodule there are multiple smaller upper lobe nodules measuring 3 mm or less which are not significantly changed. No endobronchial lesions. No pneumothorax. Mild thoracic spondylosis. No acute osseous abnormality. IMPRESSION: 1. Lung-RADS category 2: Benign appearance or behavior. Continue annual screening with noncontrast low-dose chest CT in 12 months. Reviewed, dictated and finalized at location O. IMPRESSION: 1. Lung-RADS category 2: Benign appearance or behavior. Continue annual screeni ng with noncontrast low-dose chest CT in 12 months.
== END 2025-04-10 09:28 | disposition home or self-care (01) ==
LOC: MICIMG 09:28
PROVIDERS: PCP Family Medicine; Visit Provider Family Medicine
DX: Z12.2 Encounter for screening for malignant neoplasm of respiratory organs (principal); Z87.891 Personal history of nicotine dependence
CPT/HCPCS: 71271